=== PATIENT | male | born 1950 | race Caucasian/White ===

== ENCOUNTER 2017-04-14 23:01 | Emergency (ER) | payer MEDICARE ==
--- NOTE | 2017-04-14 23:31 | ER Document Report ---
ED General - General Chief Complaint: Foot Pain Stated Complaint: RIGHT FOOT PAIN Time Seen by Provider: 04/14/17 23:07 Notes: Patient is a 66-year-old male who presents with complaint of pain in his right foot. Patient has a history of multiple stents being placed in the arteries of his right leg due to recurrent clotting. He says the pain in his foot is exactly what he fell 3 years ago when he had to have any stents placed. He says the pain started suddenly approximately 2 hours ago where he was just lying in bed. Says he has pain at rest but is a little bit worse when he tries to apply pressure to the foot. Patient is to be on Plavix and warfarin. Patient was taken off Plavix and warfarin approximately 2 weeks ago because of some GI bleeding with his INR being supratherapeutic due to him being a chemotherapy. He is on chemotherapy due to lung cancer. Patient denies any injuries to his foot. He has no other complaints at this time. TRAVEL OUTSIDE OF THE [place] IN LAST 30 DAYS: No - Related Data Allergies/Adverse Reactions: No Known Allergies Allergy (Unverified 04/15/17 00:51) Past Medical History - Social History Smoking Status: Never Smoker Frequency of alcohol use: None Drug Abuse: None Family History: Reviewed & Not Pertinent Renal/ Medical History: Denies: Hx Peritoneal Dialysis Past Surgical History: Reports: Hx Vascular Surgery Review of Systems - Review of Systems Notes: My Normal Review Basic REVIEW OF SYSTEMS: CONSTITUTIONAL : Denies fever, chills, or sweats. Denies recent illness. RESPIRATORY: Denies cough, cold, or chest congestion. Denies shortness of breath, difficulty breathing, or wheezing. GASTROINTESTINAL: Denies abdominal pain. Denies nausea, vomiting, or diarrhea. MUSCULOSKELETAL: Denies neck or back pain or joint pain or swelling. SKIN: Denies rash or skin lesions. HEMATOLOGIC : History of recurrent arterial clotting and right leg. NEUROLOGICAL: Denies altered mental status or loss of consciousness. Denies headache. Denies weakness or paralysis or loss of use of either side. Denies problems with gait or speech. Denies sensory or motor loss. ALL OTHER SYSTEMS REVIEWED AND NEGATIVE. Physical Exam - Vital signs Vitals: Pulse Resp BP Pulse Ox 84 20 141/74 H 94 04/14/17 23:09 04/14/17 23:09 04/14/17 23:09 04/14/17 23:09 - Notes Notes: General Appearance: Well nourished, alert, cooperative, no acute distress, mild to moderate obvious discomfort. Vitals: reviewed, See vital signs table. Head: no swelling or tenderness to the head Eyes: PERRL, EOMI, Conjuctiva clear Mouth: No decreasd moisturehroat: No tonsillar inflammation, No airway obstruction, No lymphadenopathy Lungs: No wheezing, No rales, No rhonci, No accessory muscle use, good air exchange bilaterally. Heart: Normal rate, Regular rythm, No murmur, no rub Extremities: strength 5/5 in all extremities, good pulses in all extremities, dopplerable pedal pulses left foot. Right foot pedal pulses are not dopplerable. I did do bedside ultrasound significant for an color flow through the artery. I cannot see color flow either with either the posterior to tibial or the dorsalis pedis pulses. Patient does have some capillary refill but is very sluggish. Patient has pain mainly over the medial aspect of the right foot. Skin: warm, dry, no rash Neuro: speech clear, oriented x 3, normal affect, responds appropriately to questions. Course - Re-evaluation Re-evalutation: 04/14/17 23:41 Spoke with our charge nurse and we do not have the ability to do vascular Doppler night at this facility. I cannot rule out arterial occlusion of the patient's right leg at this time therefore need to transfer him to a facility that can. I have called [facility] spoke with the transfer center and waiting to hear back with an accepting physician so I can potentially transfer. Patient's weight is not yet in the system. I put in an order to obtain weight so I can place the patient on blood thinning medications. 04/14/17 23:[address] Toby Malone, vascular surgeon at [facility]. He recommends placing patient on heparin drip and except the patient for transfer. [facility] says they have a truck that can be urine in our I will transfer the patient down there. I explained the plan to the patient he is agreeable to it. Dictation of this chart was performed using voice recognition software; therefore, there may be some unintended grammatical errors. 04/15/17 02:02 Transport team is here to transfer the patient to [facility]. Patient looks well. He has no further complaints. He says he feels well other than his continued right foot pain. On reevaluation patient continues not have palpable pulses in the foot. His foot continues to be pale with sluggish capillary refill in the toes. Patient is stable for transfer. Heparin drip is infusing. - Vital Signs Vital signs: Temp Pulse Resp BP Pulse Ox 98.7 F 84 22 H 105/62 93 04/15/17 01:21 04/14/17 23:09 04/15/17 01:09 04/15/17 01:01 04/15/17 01:09 - Laboratory Result Diagrams: 04/14/17 23:35 04/14/17 23:35 Laboratory results interpreted by me: 04/14/17 04/14/17 04/15/17 23:35 23:35 00:15 WBC 2.2 L RBC 3.66 L Hgb 9.4 L Hct 28.5 L MCV 78 L D MCH 25.6 L RDW 22.8 H Monocytes % (Manual) 21 H Abs Neuts (Manual) 1.0 L BUN 6 L Glucose 128 H Urine Protein 30 H Urine Urobilinogen 2.0 H - EKG Interpretation by Me Additional EKG results interpreted by me: 04/14/17 23:58 EKG is reviewed and interpreted by me. EKG shows normal sinus rhythm with rate of 88 bpm. Occasional PVC. LA interval, QRS duration, QTc intervals are within normal range. No old EKG available for comparison. No ST segment elevation or depression. Discharge - Discharge Clinical Impression: Arterial occlusion, lower extremity Condition: Stable Disposition: [facility] Referrals: MAYRA STEWART MD [Primary Care Provider] - Follow up as needed
[2017-04-14 23:51] LABS: PARTIAL THROMBOPLASTIN TIME 35.5 SEC (23.5-35.8)
[2017-04-14] MEDS ORDERED: HEPARIN SODIUM,PORCINE/D5W 25,000 UNIT/250 ML RTUINJ IV PRN (23:51)
[2017-04-14] MEDS ORDERED: HEPARIN SOD (PORCINE) 1,000 UNIT/ML 10 ML VIAL IV ONE (23:51)
[2017-04-14 23:58] LABS: HEMATOCRIT 28.5 % (37.9-51.0); HEMOGLOBIN 9.4 g/dL (13.5-17.0); HGB HCT DIFFERENCE -0.3; MEAN CORPUSCULAR HEMOGLOBIN 25.6 pg (27.0-33.4); MEAN CORPUSCULAR HGB CONC 32.8 g/dL (32.0-36.0); RED BLOOD COUNT 3.66 10^6/uL (4.35-5.55); RED CELL DISTRIBUTION WIDTH 22.8 % (11.5-14.0); WHITE BLOOD COUNT 2.2 10^3/uL (4.0-10.5)
[2017-04-15 00:01] LABS: ANION GAP 9 (5-19); BLOOD UREA NITROGEN 6 mg/dL (7-20); CALCIUM 8.6 mg/dL (8.4-10.2); CARBON DIOXIDE 26 mmol/L (22-30); CHLORIDE 104 mmol/L (98-107); CREATININE RESULT 0.71 mg/dL (0.52-1.25); GLUCOSE 128 mg/dL (75-110); POTASSIUM 3.9 mmol/L (3.6-5.0); SODIUM 139.1 mmol/L (137-145)
[2017-04-15 00:10] LABS: MEAN CORPUSCULAR VOLUME 78 fl (80-97)
[2017-04-15 00:17] LABS: BASOPHILS % (MANUAL) 1 % (0-2); EOSINOPHILS % (MANUAL) 1 % (0-6); LYMPHOCYTES % (MANUAL) 31 % (13-45); TOTAL CELLS COUNTED 100
[2017-04-15 00:22] LABS: ANISOCYTOSIS 3+; HYPOCHROMASIA 1+; MICROCYTOSIS SLIGHT; POIKILOCYTOSIS 1+; POLYCHROMASIA 1+
[2017-04-15 00:23] LABS: BURR CELLS 1+; OVALOCYTES 1+; PLATELET CLUMPS PRESENT; SCHISTOCYTES 1+
[2017-04-15 00:57] LABS: APPEARANCE,URINE CLEAR; BILIRUBIN,URINE NEGATIVE (NEGATIVE); GLUCOSE, URINE NEGATIVE (NEGATIVE); KETONES,URINE NEGATIVE (NEGATIVE); LEUKOCYTE ESTERASE,URINE NEGATIVE (NEGATIVE); NITRITE,URINE NEGATIVE (NEGATIVE); PROTEIN,URINE 30 mg/dL (NEGATIVE); URINE SPECIFIC GRAVITY 1.011
[2017-04-15 02:03] VITALS: BP 127/68
--- NOTE | 2017-04-15 07:59 | EKG REPORT ---
SEVERITY:- ABNORMAL ECG - SINUS RHYTHM VENTRICULAR BIGEMINY : Confirmed by: Kareem Navas MD 15-Apr-2017 07:59:04
== END 2017-04-15 02:10 | disposition short-term general hospital (02) ==
LOC: ER 23:01
DX: I70.209 Unspecified atherosclerosis of native arteries of extremities, unspecified extremity (principal); M79.671 Pain in right foot; Z95.820 Peripheral vascular angioplasty status with implants and grafts; C34.90 Malignant neoplasm of unspecified part of unspecified bronchus or lung; Z79.899 Other long term (current) drug therapy
CPT/HCPCS: 93005; 96376; 99285; 96365; 96366; 36415; 85025; 85610; 85730; 80048; 81001; 93010; J1644 ×2

== ENCOUNTER 2017-06-10 09:01 | Inpatient (IN) | payer MEDICARE ==
[2017-06-10] MEDS ORDERED: IPRATROPIUM/ALBUTEROL 0.5-2.5 MG/3 ML AMPUL NEB ONE ×3 (09:08→15:00)
[2017-06-10] MEDS ORDERED: NORMAL SALINE 1000 ML 1,000 ML IV ONE (09:08)
--- NOTE | 2017-06-10 09:37 | RADIOLOGY REPORT (SQ) ---
EXAM DESCRIPTION: CHEST SINGLE VIEW COMPLETED DATE/TIME: 06/10/2017 9:21 am REASON FOR STUDY: hypoxic COMPARISON: None. EXAM PARAMETERS: NUMBER OF VIEWS: One view. TECHNIQUE: Single frontal radiographic view of the chest acquired. RADIATION DOSE: NA LIMITATIONS: None. FINDINGS: LUNGS AND PLEURA: There is underlying emphysema. There is patchy multifocal airspace dise ase with moderate bilateral pleural effusions, left greater than right. MEDIASTINUM AND HILAR STRUCTURES: No masses. Contour normal. HEART: Cardiomegaly. BONES: No acute findings. HARDWARE: None in the chest. OTHER: No other significant finding. IMPRESSION: UNDERLYING EMPHYSEMA WITH PATCHY MULTIFOCAL AIRSPACE DISEASE AND MODERATE BILATERAL PLEU RAL EFFUSIONS. PRESUMABLY THIS REPRESENTS ASYMMETRIC PULMONARY EDEMA SUPERIMPOSED ON COPD HOWEVER MU LTIFOCAL PNEUMONIA IS ALSO IN THE DIFFERENTIAL. TECHNICAL DOCUMENTATION: JOB ID: [id number] [employer]- All Rights Reserved
[2017-06-10 09:44] LABS: ABSOLUTE BASOPHILS # (AUTO) 0.1 10^3/uL (0.0-0.2); ABSOLUTE LYMPHOCYTES (AUTO) 2.1 10^3/uL (0.5-4.7); ABSOLUTE NEUT (AUTO) 7.9 10^3/uL (1.7-8.2); EOSINOPHILS % (AUTO) 0.4 % (0-6); HEMATOCRIT 33.7 % (37.9-51.0); HEMOGLOBIN 9.7 g/dL (13.5-17.0); LYMPHOCYTES % (AUTO) 18.6 % (13-45); MEAN CORPUSCULAR HGB CONC 28.8 g/dL (32.0-36.0); MEAN CORPUSCULAR VOLUME 66 fl (80-97); MONOCYTES % (AUTO) 9.4 % (3-13); PLATELET COUNT 454 10^3/uL (150-450); RED CELL DISTRIBUTION WIDTH 19.4 % (11.5-14.0); SEGMENTED NEUTROPHILS % (AUTO) 70.6 % (42-78); TOTAL CELLS COUNTED % (AUTO) 100 %; WHITE BLOOD COUNT 11.2 10^3/uL (4.0-10.5)
[2017-06-10 09:47] LABS: INTERNATIONAL RATION (INR) 3.15; PROTHROMBIN TIME 33.8 SEC (11.4-15.4)
[2017-06-10 09:56] LABS: VENOUS BLOOD BASE EXCESS -0.8 mmol/L; VENOUS BLOOD HCO3 23.9 mmol/L (20-32); VENOUS BLOOD PCO2 39.5 mmHg (35-63); VENOUS BLOOD PH 7.4 (7.30-7.42)
[2017-06-10 10:14] LABS: ALANINE AMINOTRANSFERASE 35 U/L (21-72); ALBUMIN 2.3 g/dL (3.5-5.0); ALKALINE PHOSPHATASE 166 U/L (38-126); ANION GAP 7 (5-19); ASPARTATE AMINO TRANSFERASE 36 U/L (17-59); BILIRUBIN,DIRECT 0.3 mg/dL (0.0-0.4); BILIRUBIN,TOTAL 0.5 mg/dL (0.2-1.3); BLOOD UREA NITROGEN 15 mg/dL (7-20); CALCIUM 8.7 mg/dL (8.4-10.2); CARBON DIOXIDE 25 mmol/L (22-30); CHLORIDE 109 mmol/L (98-107); GLUCOSE 114 mg/dL (75-110); POTASSIUM 3.8 mmol/L (3.6-5.0); SODIUM 140.5 mmol/L (137-145); TOTAL PROTEIN 5.1 g/dL (6.3-8.2)
[2017-06-10] MEDS ORDERED: VANCOMYCIN HCL INJ 1000 MG VIAL IV ONE (10:32)
[2017-06-10] MEDS ORDERED: LEVOFLOXACIN 750 MG TABLET PO ONE (10:32)
[2017-06-10] MEDS ORDERED: PIPERACILLIN/TAZOBACTAM 3.375 GM VIAL IV ONE (10:32)
--- NOTE | 2017-06-10 10:41 | ER Document Report ---
ED General - General Chief Complaint: Breathing Difficulty Stated Complaint: DIFFICULTY BREATHING Time Seen by Provider: 06/10/17 09:08 Mode of Arrival: Medic Information source: Patient Notes: 66-year-old male history of stage IV lung CA who last had chemotherapy and April presents with complaints of shortness of breath, patient was found satting 74% on room air by EMS. He notes his shortness of breath has been worsening over the past few days. He denies being on any oxygen at home. He denies any fevers or chills admits to productivity to his cough patient was last in rehab facility in the end of April. Patient was supposed to have chemo yesterday but had to cancel due to increment weather in [place] TRAVEL OUTSIDE OF THE [place] IN LAST 30 DAYS: No - HPI Onset: Last week Onset/Duration: Persistent, Worse Quality of pain: No pain Severity: Severe Pain Level: Denies Associated symptoms: Productive cough, Shortness of breath Exacerbated by: Denies Relieved by: Denies Similar symptoms previously: Yes Recently seen / treated by doctor: Yes - Related Data Allergies/Adverse Reactions: No Known Allergies Allergy (Unverified 04/15/17 00:51) Past Medical History - Social History Smoking Status: Current Every Day Smoker Cigarette use (# per day): Yes Chew tobacco use (# tins/day): No Smoking Education Provided: Yes - Patient counselled regarding cessation for 4 minutes Frequency of alcohol use: None Drug Abuse: None Family History: Reviewed & Not Pertinent Patient has suicidal ideation: No Patient has homicidal ideation: No - Past Medical History Cardiac Medical History: Reports: Hx Atrial Fibrillation Renal/ Medical History: Denies: Hx Peritoneal Dialysis Past Surgical History: Reports: Hx Vascular Surgery Review of Systems - Review of Systems Notes: REVIEW OF SYSTEMS: CONSTITUTIONAL : Denies fever, chills, or sweats. Denies recent illness. EENT: Denies eye, ear, throat, or mouth pain or symptoms. Denies nasal or sinus congestion or discharge. Denies throat, tongue, or mouth swelling or difficulty swallowing. CARDIOVASCULAR: Denies chest pain. Denies palpitations or racing or irregular heart beat. Denies ankle edema. RESPIRATORY: difficulty breathing GASTROINTESTINAL: Denies abdominal pain or distention. Denies nausea, vomiting , or diarrhea. Denies blood in vomitus, stools, or per rectum. Denies black, tarry stools. Denies constipation. GENITOURINARY: Denies difficulty urinating, painful urination, burning, frequency, blood in urine, or discharge. MUSCULOSKELETAL: Denies back or neck pain or stiffness. Denies joint pain or swelling. SKIN: Denies rash, lesions or sores. HEMATOLOGIC : Denies easy bruising or bleeding. LYMPHATIC: Denies swollen, enlarged glands. NEUROLOGICAL: Denies confusion or altered mental status. Denies passing out or loss of consciousness. Denies dizziness or lightheadedness. Denies headache. Denies weakness or paralysis or loss of use of either side. Denies problems with gait or speech. Denies sensory loss, numbness, or tingling. Denies seizures. PSYCHIATRIC: Denies anxiety or stress. Denies depression, suicidal ideation, or homicidal ideation. ALL OTHER SYSTEMS REVIEWED AND NEGATIVE. Dictation was performed using [employer] voice recognition software PHYSICAL EXAMINATION: GENERAL: Ill-appearing, poorly-nourished and in significant respiratory distress HEAD: Atraumatic, normocephalic. EYES: Pupils equal round and reactive to light, extraocular movements intact, sclera anicteric, conjunctiva are normal. ENT: Nares patent, oropharynx clear without exudates. Moist mucous membranes. NECK: Normal range of motion, supple without lymphadenopathy LUNGS: Coarse wheezing inspiratory expiratory significant respiratory distress retractions noted all throughout HEART: Regular rate and rhythm without murmurs ABDOMEN: Soft, nontender, nondistended abdomen. No guarding, no rebound. No masses appreciated. Musculoskeletal: Normal range of motion, no pitting or edema. No cyanosis. NEUROLOGICAL: Cranial nerves grossly intact. Normal speech, normal gait. Normal sensory, motor exams PSYCH: Normal mood, normal affect. SKIN: Warm, Dry, normal turgor, no rashes or lesions noted. Physical Exam - Vital signs Vitals: Temp BP 98.4 F 189/100 H 06/10/17 09:05 06/10/17 09:05 Course - Re-evaluation Re-evalutation: 06/10/17 10:45 Patient's x-ray is consistent with effusions there is concern for patchy infiltrates of pneumonia which would be hospital-acquired patient will be treated for such he is currently on BiPAP 06/11/17 07:35 Patient will be admitted to the hospitalist service - Vital Signs Vital signs: Temp Pulse Resp BP Pulse Ox 97.7 F 93 23 H 142/72 H 99 06/11/17 04:32 06/11/17 04:32 06/11/17 04:32 06/11/17 04:32 06/11/17 04:32 - Laboratory Result Diagrams: 06/11/17 05:59 06/11/17 05:59 Laboratory results interpreted by me: 06/10/17 06/10/17 06/10/17 09:11 09:11 09:11 WBC 11.2 H Hgb 9.7 L Hct 33.7 L MCV 66 L MCH 19.0 L MCHC 28.8 L RDW 19.4 H Plt Count 454 H PT 33.8 H Chloride 109 H Glucose 114 H Alkaline Phosphatase 166 H Total Protein 5.1 L Albumin 2.3 L - Diagnostic Test Radiology reviewed: Image reviewed, Reports reviewed Critical Care Note - Critical Care Note Total time excluding time spent on procedures (mins): 45 Comments: 45 minutes of critical care time spent in direct contact evaluating and reevaluating the patient, treating symptoms, reviewing labs and studies and speaking with family and consultants excluding any procedures Discharge - Discharge Clinical Impression: Hospital-acquired pneumonia Squamous cell carcinoma of lung, stage IV Qualifiers: Laterality: unspecified laterality Qualified Code(s): C34.90 - Malignant neoplasm of unspecified part of unspecified bronchus or lung Respiratory failure Qualifiers: Chronicity: acute Respiratory failure complication: unspecified whether with hypoxia or hypercapnia Qualified Code(s): J96.00 - Acute respiratory failure, unspecified whether with hypoxia or hypercapnia Condition: Fair Disposition: ADMITTED INPATIENT Admitting Provider: Hospitalist Unit Admitted: IMCU
--- NOTE | 2017-06-10 17:28 | EKG REPORT ---
SEVERITY:- BORDERLINE ECG - SINUS TACHYCARDIA BORDERLINE T ABNORMALITIES, ANTERIOR LEADS : Confirmed by: Ritesh Neville 10-Jun-2017 12:18:06
[2017-06-10] MEDS ORDERED: RIVAROXABAN 10 MG TABLET ONE (19:11)
[2017-06-10] MEDS ORDERED: METHYLPREDNISOLONE INJ 40 MG/1 ML SDV ONE (22:53)
[2017-06-10] MEDS ORDERED: ALBUTEROL SULFATE 0.083% NEB 2.5 MG/3 ML AMPUL NEB PRN (23:09)
[2017-06-11] MEDS: IPRATROPIUM/ALBUTEROL 0.5-2.5 MG/3 ML AMPUL NEB SCH ×4 (01:57→21:20)
[2017-06-11 06:27] LABS: HEMATOCRIT 27.8 % (37.9-51.0); HEMOGLOBIN 8.2 g/dL (13.5-17.0); MEAN CORPUSCULAR HEMOGLOBIN 19.4 pg (27.0-33.4); MEAN CORPUSCULAR HGB CONC 29.3 g/dL (32.0-36.0); MEAN CORPUSCULAR VOLUME 66 fl (80-97); PLATELET COUNT 338 10^3/uL (150-450); RED CELL DISTRIBUTION WIDTH 19.4 % (11.5-14.0); WHITE BLOOD COUNT 7.6 10^3/uL (4.0-10.5)
[2017-06-11] MEDS: METHYLPREDNISOLONE INJ 40 MG/1 ML SDV IV SCH ×3 (06:31→21:07)
[2017-06-11 06:58] LABS: ANION GAP 6 (5-19); BLOOD UREA NITROGEN 18 mg/dL (7-20); CALCIUM 8.6 mg/dL (8.4-10.2); CARBON DIOXIDE 25 mmol/L (22-30); CHLORIDE 109 mmol/L (98-107); GLUCOSE 141 mg/dL (75-110); POTASSIUM 4.3 mmol/L (3.6-5.0); SODIUM 139.5 mmol/L (137-145)
[2017-06-11] MEDS: LEVOFLOXACIN 750 MG/D5W RTU 750 MG/150 ML RTUPB IV SCH (08:25)
--- NOTE | 2017-06-11 10:42 | HISTORY AND PHYSICAL E ---
History and Physical NAME: SYLWIA WATSON : 1950 AGE: 66Y ADMITTED: 06/10/2017 ROOM: 330 ADMITTING PHYSICIAN: [facility]. ADMISSION DIAGNOSES: 1. Pneumonia. 2. Acute COPD exacerbation. 3. Lung cancer, last chemotherapy in March. 4. Atrial fibrillation. HISTORY OF PRESENT ILLNESS: The patient is a 66-year-old male who has a history of lung cancer. He last received chemotherapy in March in [place]. The patient reports that he awoke this morning with cough productive of thick yellow sputum as well as expiratory wheezes. The patient reported he was short of breath with minimal exertion and was found to have an oxygen saturation of 75% when he presented to the emergency room. The patient denied having any chest pain. He denies orthopnea or PND. He does have some chronic lower extremity edema but no change there. He denies any recent travel. He denies any sick exposures. The patient was not aware of whether he was running any fever. The patient was seen in the emergency room and was found to have a pneumonia along with COPD exacerbation. PAST MEDICAL HISTORY: 1. Lung cancer. History of chemotherapy last given in March. 2. Atrial fibrillation. 3. Coronary artery disease with history of coronary stent placement in the right coronary artery. 4. Peripheral vascular. The patient has had multiple peripheral stents placed at the right leg and bilateral iliacs by his description. ALLERGIES: None. MEDICATIONS: 1. Xarelto 20 mg daily. 2. Folic acid 1 mg daily. The patient is on other medications but cannot remember what those are at this time. SURGICAL HISTORY: The patient has a history of peripheral stents as well coronary artery stents. No other surgeries. SOCIAL HISTORY: The patient smokes 1/2 pack per day. He does not drink any alcohol and does not use any illicit substances. The patient used to be employed as a [employer] security. FAMILY HISTORY: Father at age 73 and had no chronic health problems. Mother at age 68 and had no chronic health problems. He had a brother who from coronary artery disease. REVIEW OF SYSTEMS: A complete review of systems is taken. The patient denies any fever or chills. He denies any visual or hearing changes. He denies any odynophagia or dysphagia. He denies any neck pain or stiffness. He has had a cough productive of some yellow thick sputum. He also has had shortness of breath and wheezing. He denies any orthopnea or PND or worsening lower extremity edema. He denies any chest pain. He denies any palpitations. He does have a history of atrial fibrillation but reports it has been rate controlled. He denies any nausea, vomiting or abdominal pain. He denies any melena or bright red blood per rectum. He denies any melena or bright red blood per rectum. He does have some urinary hesitancy but denies any hematuria. He has had some chronic lower extremity edema but no change in that edema. He denies any skin rash. He denies any focal weakness. He denies any sensory changes. RADIOGRAPHS: Chest x-ray shows left lower lobe pneumonia. ASSESSMENT AND PLAN: 1. Pneumonia. The patient appears to have community-acquired pneumonia. The last time he was in a healthcare facility was the first part of April and I feel he is not at risk for healthcare associated pneumonia. Will treat with Levaquin 750 mg IV daily. Blood cultures were obtained by the emergency room. 2. Acute COPD exacerbation. Will continue with nebulizers and Solu-Medrol. 3. Coronary artery disease. The patient has a history of coronary artery disease but denies any chest pain. 4. Atrial fibrillation. The patient is currently rate controlled. We will continue with the Xarelto 20 mg daily as he has done previously. 5. Peripheral vascular disease. The patient has a history of stents placed in his bilateral iliacs as well as further peripherally in the right leg. 6. Tobacco abuse. The patient is counseled to quit smoking. 7. Code status. The patient requests to be a DO NOT RESUSCITATE. DISPOSITION: The patient will be admitted to the IMCU unit. He also will be given BiPAP as needed. TIME SPENT: Seventy-five minutes. DICTATING PHYSICIAN: Dustin NICHOLS M.D. [id number] PHY#: [id number] ID: [id number] JOB#: [id number] ACCT: [id number] cc:Dat Mccall M.D. >
--- NOTE | 2017-06-11 11:36 | PDOC PROGRESS REPORT ---
Subjective Progress Note for:: 06/11/17 Subjective:: Patient reports that he is feeling better with less cough Reason For Visit: RESPIRATORY FAILURE Physical Exam Vital Signs: Temp Pulse Resp BP Pulse Ox 98.0 F 91 18 128/70 H 95 06/11/17 07:41 06/11/17 07:41 06/11/17 07:41 06/11/17 07:41 06/11/17 07:41 Intake & Output 06/10/17 06/11/17 06/12/17 06:59 06:59 06:59 Intake Total 460 Balance 460 Weight 69.7 kg General appearance: PRESENT: no acute distress Eye exam: PRESENT: conjunctiva pink. ABSENT: scleral icterus Mouth exam: PRESENT: moist, tongue midline Neck exam: ABSENT: JVD Respiratory exam: PRESENT: wheezes - Bilateral expiratory wheezes. ABSENT: rales, rhonchi Cardiovascular exam: PRESENT: RRR. ABSENT: diastolic murmur, rubs, systolic murmur GI/Abdominal exam: PRESENT: normal bowel sounds, soft. ABSENT: distended, guarding, mass, organolmegaly, rebound, tenderness Extremities exam: ABSENT: calf tenderness, clubbing Neurological exam: PRESENT: alert, awake, oriented to person, oriented to place , oriented to time, oriented to situation, CN II-XII grossly intact. ABSENT: motor sensory deficit Psychiatric exam: PRESENT: appropriate affect Skin exam: PRESENT: dry, intact, warm. ABSENT: cyanosis, rash Results Laboratory Results: 06/11/17 05:59 06/11/17 05:59 06/11/17 06/11/17 05:59 05:59 WBC 7.6 RBC 4.20 L Hgb 8.2 L Hct 27.8 L MCV 66 L MCH 19.4 L MCHC 29.3 L RDW 19.4 H Plt Count 338 Sodium 139.5 Potassium 4.3 Chloride 109 H Carbon Dioxide 25 Anion Gap 6 BUN 18 Creatinine 0.76 Est GFR ( Amer) > 60 Est GFR (Non-Af Amer) > 60 Glucose 141 H Calcium 8.6 Impressions: Chest X-Ray 06/10/17 09:08 IMPRESSION: UNDERLYING EMPHYSEMA WITH PATCHY MULTIFOCAL AIRSPACE DISEASE AND MODERATE BILATERAL PLEURAL EFFUSIONS. PRESUMABLY THIS REPRESENTS ASYMMETRIC PULMONARY EDEMA SUPERIMPOSED ON COPD HOWEVER MULTIFOCAL PNEUMONIA IS ALSO IN THE DIFFERENTIAL. Assessment & Plan - Diagnosis (1) Respiratory failure Qualifiers: Chronicity: acute Respiratory failure complication: unspecified whether with hypoxia or hypercapnia Qualified Code(s): J96.00 - Acute respiratory failure, unspecified whether with hypoxia or hypercapnia Is this a current diagnosis for this admission?: Yes Plan: Secondary to pneumonia and acute COPD exacerbation. Patient was on BiPAP yesterday but is doing well without it at this time. (2) Pneumonia Is this a current diagnosis for this admission?: Yes Plan: It has been over 6 weeks since the patient was in a hospital facility. Because of this I feel this is community-acquired pneumonia and not hospital acquired pneumonia. Because of that we will continue with the Levaquin. (3) COPD exacerbation Is this a current diagnosis for this admission?: Yes Plan: We will continue with the Solu-Medrol and nebulizers. (4) Atrial fibrillation Is this a current diagnosis for this admission?: Yes Plan: Patient is rate control. Continue with the Xarelto for anticoagulation. (5) Coronary artery disease Is this a current diagnosis for this admission?: Yes Plan: Denies any chest pain. (6) Peripheral vascular disease Is this a current diagnosis for this admission?: Yes Plan: Patient has had multiple stent placements in his legs. (7) Squamous cell carcinoma of lung, stage IV Qualifiers: Laterality: unspecified laterality Qualified Code(s): C34.90 - Malignant neoplasm of unspecified part of unspecified bronchus or lung Is this a current diagnosis for this admission?: Yes Plan: Patient reports that his last chemotherapy was in April. (8) Do not resuscitate Is this a current diagnosis for this admission?: Yes Plan: Patient requests to be a DO NOT RESUSCITATE. - Time Time Spent with patient: 25-34 minutes - Inpatient Certification Medical Necessity: Need Close Monitoring Due to Risk of Patient Decompensation, Need for IV Antibiotics
[2017-06-11] MEDS ORDERED: METOPROLOL TARTRATE 25 MG TABLET PO ONE (13:15)
[2017-06-11] MEDS ORDERED: ALBUTEROL SULFATE HFA (90 MCG/PUFF) 200 PUFF/8.5 GM MDI IH PRN (13:15)
[2017-06-11 17:12] LABS: APPEARANCE,URINE SLIGHTLY-CLOUDY; BILIRUBIN,URINE NEGATIVE (NEGATIVE); COLOR,URINE YELLOW; GLUCOSE, URINE 50 mg/dL (NEGATIVE); KETONES,URINE NEGATIVE (NEGATIVE); LEUKOCYTE ESTERASE,URINE NEGATIVE (NEGATIVE); NITRITE,URINE NEGATIVE (NEGATIVE); PROTEIN,URINE 30 mg/dL (NEGATIVE); URINE SPECIFIC GRAVITY 1.023
[2017-06-11] MEDS: RIVAROXABAN 10 MG TABLET PO SCH (18:13)
[2017-06-11] MEDS: LANSOPRAZOLE 30 MG TAB.RAP.DR PO SCH (18:13)
[2017-06-11] MEDS: BUPROPION HCL 75 MG TABLET PO SCH (21:07)
[2017-06-11] MEDS: NORMAL SALINE 1000 ML 1,000 ML IV PRN (21:07)
[2017-06-11] MEDS ORDERED: RIVAROXABAN 10 MG TABLET PO SCH (22:00)
[2017-06-12] MEDS: IPRATROPIUM/ALBUTEROL 0.5-2.5 MG/3 ML AMPUL NEB SCH ×4 (03:06→20:24)
[2017-06-12] MEDS: METHYLPREDNISOLONE INJ 40 MG/1 ML SDV IV SCH ×3 (05:36→22:12)
[2017-06-12] MEDS: LANSOPRAZOLE 30 MG TAB.RAP.DR PO SCH ×2 (05:37→16:04)
[2017-06-12 06:18] LABS: ABSOLUTE BASOPHILS # (AUTO) 0.1 10^3/uL (0.0-0.2); ABSOLUTE LYMPHOCYTES (AUTO) 0.5 10^3/uL (0.5-4.7); ABSOLUTE MONOCYTES (AUTO) 0.3 10^3/uL (0.1-1.4); ABSOLUTE NEUT (AUTO) 9.3 10^3/uL (1.7-8.2); BASOPHILS % (AUTO) 0.6 % (0-2); BLOOD UREA NITROGEN 15 mg/dL (7-20); CALCIUM 8.7 mg/dL (8.4-10.2); CHLORIDE 109 mmol/L (98-107); GLUCOSE 126 mg/dL (75-110); HEMATOCRIT 26.4 % (37.9-51.0); LYMPHOCYTES % (AUTO) 5.3 % (13-45); MEAN CORPUSCULAR HEMOGLOBIN 19.2 pg (27.0-33.4); MEAN CORPUSCULAR HGB CONC 29.4 g/dL (32.0-36.0); MEAN CORPUSCULAR VOLUME 65 fl (80-97); MONOCYTES % (AUTO) 3.2 % (3-13); PLATELET COUNT 356 10^3/uL (150-450); RED BLOOD COUNT 4.04 10^6/uL (4.35-5.55); RED CELL DISTRIBUTION WIDTH 19.2 % (11.5-14.0); SEGMENTED NEUTROPHILS % (AUTO) 90.9 % (42-78); TOTAL CELLS COUNTED % (AUTO) 100 %; WHITE BLOOD COUNT 10.2 10^3/uL (4.0-10.5)
[2017-06-12 06:30] LABS: ANION GAP 6 (5-19); CARBON DIOXIDE 24 mmol/L (22-30); SODIUM 138.8 mmol/L (137-145)
[2017-06-12 06:44] LABS: HEMOGLOBIN 7.8 g/dL (13.5-17.0)
[2017-06-12] MEDS: LEVOFLOXACIN 750 MG/D5W RTU 750 MG/150 ML RTUPB IV SCH (07:50)
[2017-06-12] MEDS: BUPROPION HCL 75 MG TABLET PO SCH ×2 (09:26→22:12)
[2017-06-12] MEDS: AMIODARONE HCL 200 MG TABLET PO SCH (09:26)
[2017-06-12] MEDS: FOLIC ACID 1 MG TABLET PO SCH (09:26)
[2017-06-12] MEDS: METOPROLOL TARTRATE 25 MG TABLET PO SCH (09:27)
[2017-06-12] MEDS ORDERED: METOPROLOL TARTRATE 25 MG TABLET PO SCH (10:00)
[2017-06-12] MEDS ORDERED: (PENDING PHARMACY ID) (Bupropion Hcl [Bupropion Xl] 150 MG) PO SCH (10:00)
[2017-06-12] MEDS: RIVAROXABAN 10 MG TABLET PO SCH (16:04)
--- NOTE | 2017-06-12 17:40 | PDOC PROGRESS REPORT ---
Subjective Progress Note for:: 06/12/17 Subjective:: No overnight events. Continues to cough and have some SOB. On 2L. No other complaints. Denies fevers, chills, CP, SOB, abdominal pain, NV. Reason For Visit: PNEUMONIA Physical Exam Vital Signs: Temp Pulse Resp BP Pulse Ox 98.0 F 81 23 H 125/62 92 06/12/17 15:19 06/12/17 15:45 06/12/17 15:19 06/12/17 15:19 06/12/17 15:45 Intake & Output 06/11/17 06/12/17 06/13/17 06:59 06:59 06:59 Intake Total 460 2594 1040 Output Total 300 1 Balance 460 2294 1039 Weight 69.7 kg 70.6 kg General appearance: PRESENT: no acute distress, cooperative, other - Thin, cachectic, older than staged age Head exam: PRESENT: atraumatic, normocephalic Mouth exam: PRESENT: moist Respiratory exam: PRESENT: decreased breath sounds, unlabored, other - Course breath sounds throughout Cardiovascular exam: PRESENT: RRR GI/Abdominal exam: PRESENT: soft. ABSENT: firm, rigid Neurological exam: PRESENT: alert, altered, awake Results Laboratory Results: 06/12/17 05:23 06/12/17 05:23 06/12/17 06/12/17 05:23 05:23 WBC 10.2 RBC 4.04 L Hgb 7.8 L Hct 26.4 L MCV 65 L MCH 19.2 L MCHC 29.4 L RDW 19.2 H Plt Count 356 Seg Neutrophils % 90.9 H Lymphocytes % 5.3 L Monocytes % 3.2 Eosinophils % 0.0 Basophils % 0.6 Absolute Neutrophils 9.3 H Absolute Lymphocytes 0.5 Absolute Monocytes 0.3 Absolute Eosinophils 0.0 Absolute Basophils 0.1 Sodium 138.8 Potassium 4.0 Chloride 109 H Carbon Dioxide 24 Anion Gap 6 BUN 15 Creatinine 0.68 Est GFR ( Amer) > 60 Est GFR (Non-Af Amer) > 60 Glucose 126 H Calcium 8.7 06/11/17: NO growth at 1 day, blood cultures 06/10/17 13:07 Sputum Gram Stain - Final 06/10/17 13:07 Sputum Sputum Culture - Final NORMAL IRA Impressions: Chest X-Ray 06/10/17 09:08 IMPRESSION: UNDERLYING EMPHYSEMA WITH PATCHY MULTIFOCAL AIRSPACE DISEASE AND MODERATE BILATERAL PLEURAL EFFUSIONS. PRESUMABLY THIS REPRESENTS ASYMMETRIC PULMONARY EDEMA SUPERIMPOSED ON COPD HOWEVER MULTIFOCAL PNEUMONIA IS ALSO IN THE DIFFERENTIAL. Assessment & Plan - Diagnosis (1) Pneumonia Qualifiers: Pneumonia type: due to unspecified organism Is this a current diagnosis for this admission?: Yes Plan: Breathing improved, currently on 2L - Continue Levoquin for now - Extremely deconditioned, PT consulted (2) COPD exacerbation Is this a current diagnosis for this admission?: Yes Plan: Long standing COPD, contributes to underlying breathing issues (3) Coronary artery disease Is this a current diagnosis for this admission?: Yes Plan: Stable, continue current medications (4) Do not resuscitate Is this a current diagnosis for this admission?: Yes (5) Squamous cell carcinoma of lung, stage IV Qualifiers: Laterality: unspecified laterality Qualified Code(s): C34.90 - Malignant neoplasm of unspecified part of unspecified bronchus or lung Is this a current diagnosis for this admission?: Yes Plan: Currently not actively treatment. Has outpatient medical oncology - Time Time Spent with patient: Less than 15 minutes Within: within 48 hours
[2017-06-13] MEDS: IPRATROPIUM/ALBUTEROL 0.5-2.5 MG/3 ML AMPUL NEB SCH ×4 (02:26→20:46)
[2017-06-13] MEDS: METHYLPREDNISOLONE INJ 40 MG/1 ML SDV IV SCH (06:26)
[2017-06-13] MEDS: BENZONATATE 100 MG CAPSULE PO SCH ×3 (06:26→23:06)
[2017-06-13] MEDS: LANSOPRAZOLE 30 MG TAB.RAP.DR PO SCH ×2 (06:26→16:39)
[2017-06-13 08:46] LABS: HEMOGLOBIN 8.4 g/dL (13.5-17.0); MEAN CORPUSCULAR HEMOGLOBIN 19.1 pg (27.0-33.4); MEAN CORPUSCULAR HGB CONC 29.1 g/dL (32.0-36.0); MEAN CORPUSCULAR VOLUME 66 fl (80-97); PLATELET COUNT 444 10^3/uL (150-450); RED BLOOD COUNT 4.41 10^6/uL (4.35-5.55); RED CELL DISTRIBUTION WIDTH 19.2 % (11.5-14.0); WHITE BLOOD COUNT 10.3 10^3/uL (4.0-10.5)
[2017-06-13 09:03] LABS: ANION GAP 7 (5-19); BLOOD UREA NITROGEN 14 mg/dL (7-20); CALCIUM 9.6 mg/dL (8.4-10.2); CARBON DIOXIDE 22 mmol/L (22-30); CHLORIDE 109 mmol/L (98-107); GLUCOSE 170 mg/dL (75-110); POTASSIUM 3.9 mmol/L (3.6-5.0); SODIUM 137.6 mmol/L (137-145)
[2017-06-13] MEDS: METOPROLOL TARTRATE 25 MG TABLET PO SCH (09:14)
[2017-06-13] MEDS: LEVOFLOXACIN 750 MG TABLET PO SCH (09:14)
[2017-06-13] MEDS: FOLIC ACID 1 MG TABLET PO SCH (09:14)
[2017-06-13] MEDS: PREDNISONE 20 MG TABLET PO SCH (09:14)
[2017-06-13] MEDS: BUPROPION HCL 75 MG TABLET PO SCH ×2 (09:15→23:05)
[2017-06-13] MEDS: AMIODARONE HCL 200 MG TABLET PO SCH (09:15)
[2017-06-13] MEDS: TIOTROPIUM BROMIDE DPI 5 CAP/KIT (18 MCG/CAP) IH SCH (11:25)
[2017-06-13] MEDS: NORMAL SALINE 1000 ML 1,000 ML IV PRN (12:52)
--- NOTE | 2017-06-13 15:13 | PDOC PROGRESS REPORT ---
Subjective Progress Note for:: 06/13/17 Subjective:: No overnight events. Continues to cough and have some SOB. On 2L. No other complaints. Denies fevers, chills, CP, SOB, abdominal pain, NV. Reason For Visit: PNEUMONIA Physical Exam Vital Signs: Temp Pulse Resp BP Pulse Ox 97.5 F 79 18 127/69 H 92 06/13/17 11:34 06/13/17 14:24 06/13/17 14:24 06/13/17 11:34 06/13/17 14:24 Intake & Output 06/12/17 06/13/17 06/14/17 06:59 06:59 06:59 Intake Total 2594 2418 Output Total 300 76 Balance 2294 2342 Weight 70.6 kg 72.1 kg General appearance: PRESENT: no acute distress, other - More interactive, pleasant Head exam: PRESENT: atraumatic, normocephalic Mouth exam: PRESENT: moist Respiratory exam: PRESENT: other - Course breath sounds, no wheezing, improved respiratory exam compared to 06/12 Cardiovascular exam: PRESENT: RRR. ABSENT: systolic murmur GI/Abdominal exam: PRESENT: soft. ABSENT: tenderness Neurological exam: PRESENT: alert, awake, CN II-XII grossly intact Results Laboratory Results: 06/13/17 08:30 06/13/17 08:30 06/13/17 06/13/17 08:30 08:30 WBC 10.3 RBC 4.41 Hgb 8.4 L Hct 29.0 L MCV 66 L MCH 19.1 L MCHC 29.1 L RDW 19.2 H Plt Count 444 Sodium 137.6 Potassium 3.9 Chloride 109 H Carbon Dioxide 22 Anion Gap 7 BUN 14 Creatinine 0.64 Est GFR ( Amer) > 60 Est GFR (Non-Af Amer) > 60 Glucose 170 H Calcium 9.6 06/11/17 16:45 Clean Catch Midstream Urine Culture - Final NO GROWTH 2 DAYS 06/10/17 13:07 Sputum Gram Stain - Final 06/10/17 13:07 Sputum Sputum Culture - Final NORMAL IRA Impressions: Chest X-Ray 06/10/17 09:08 IMPRESSION: UNDERLYING EMPHYSEMA WITH PATCHY MULTIFOCAL AIRSPACE DISEASE AND MODERATE BILATERAL PLEURAL EFFUSIONS. PRESUMABLY THIS REPRESENTS ASYMMETRIC PULMONARY EDEMA SUPERIMPOSED ON COPD HOWEVER MULTIFOCAL PNEUMONIA IS ALSO IN THE DIFFERENTIAL. Assessment & Plan - Diagnosis (1) Pneumonia Qualifiers: Pneumonia type: due to unspecified organism Is this a current diagnosis for this admission?: Yes Plan: Breathing improved, currently on 2L - Continue PO Levoquin to complete 7 day course - Extremely deconditioned, PT consulted for rehab evaluation - Will need SNF placement (2) COPD exacerbation Is this a current diagnosis for this admission?: Yes Plan: Long standing COPD, contributes to underlying breathing issues - Ordered Spiriva on 06/13/17 to optimize COPD regimen - Continue Duonebs and PRN Albuterol (3) Coronary artery disease Is this a current diagnosis for this admission?: Yes Plan: Stable, continue current medications (4) Do not resuscitate Is this a current diagnosis for this admission?: Yes (5) Squamous cell carcinoma of lung, stage IV Qualifiers: Laterality: unspecified laterality Qualified Code(s): C34.90 - Malignant neoplasm of unspecified part of unspecified bronchus or lung Is this a current diagnosis for this admission?: Yes Plan: Currently not actively treatment. Has outpatient medical oncologist. Will need to be improved clinically prior to entertaining additional treatment. - Time Time Spent with patient: Less than 15 minutes Within: when bed available - Referral has been made to both [facility] and
[2017-06-13] MEDS: RIVAROXABAN 10 MG TABLET PO SCH (16:39)
[2017-06-14] MEDS: IPRATROPIUM/ALBUTEROL 0.5-2.5 MG/3 ML AMPUL NEB SCH ×4 (02:23→20:08)
[2017-06-14] MEDS: BENZONATATE 100 MG CAPSULE PO SCH ×3 (05:57→22:24)
[2017-06-14] MEDS: LANSOPRAZOLE 30 MG TAB.RAP.DR PO SCH ×2 (05:57→16:39)
[2017-06-14 07:46] LABS: HEMATOCRIT 26.9 % (37.9-51.0); HEMOGLOBIN 8.2 g/dL (13.5-17.0); MEAN CORPUSCULAR HEMOGLOBIN 19.5 pg (27.0-33.4); MEAN CORPUSCULAR HGB CONC 30.5 g/dL (32.0-36.0); PLATELET COUNT 392 10^3/uL (150-450); WHITE BLOOD COUNT 10.4 10^3/uL (4.0-10.5)
[2017-06-14 08:15] LABS: MEAN CORPUSCULAR VOLUME 64 fl (80-97)
[2017-06-14] MEDS: LEVOFLOXACIN 750 MG TABLET PO SCH (09:24)
[2017-06-14] MEDS: TIOTROPIUM BROMIDE DPI 5 CAP/KIT (18 MCG/CAP) IH SCH (09:24)
[2017-06-14] MEDS: AMIODARONE HCL 200 MG TABLET PO SCH (09:24)
[2017-06-14] MEDS: PREDNISONE 20 MG TABLET PO SCH (09:24)
[2017-06-14] MEDS: METOPROLOL TARTRATE 25 MG TABLET PO SCH (09:25)
[2017-06-14] MEDS: BUPROPION HCL 75 MG TABLET PO SCH ×2 (09:25→22:24)
[2017-06-14] MEDS: FOLIC ACID 1 MG TABLET PO SCH (09:25)
[2017-06-14] MEDS: RIVAROXABAN 10 MG TABLET PO SCH (16:39)
[2017-06-14] MEDS: ACETAMINOPHEN 325 MG TABLET PO PRN ×2 (16:42→22:45)
--- NOTE | 2017-06-14 18:49 | PDOC PROGRESS REPORT ---
Subjective Progress Note for:: 06/14/17 Subjective:: No overnight events. Feeling better. Off O2. Has SOB with exertion, willing to work with PT. No other complaints. Denies fevers, chills, CP, SOB, abdominal pain, NV. Reason For Visit: PNEUMONIA Physical Exam Vital Signs: Temp Pulse Resp BP Pulse Ox 97.9 F 132 H 21 H 157/73 H 96 06/14/17 15:43 06/14/17 15:43 06/14/17 15:43 06/14/17 15:43 06/14/17 15:43 Intake & Output 06/13/17 06/14/17 06/15/17 06:59 06:59 06:59 Intake Total 2418 1560 1174 Output Total 76 Balance 2342 1560 1174 Weight 72.1 kg 73.5 kg General appearance: PRESENT: no acute distress, thin Head exam: PRESENT: atraumatic, normocephalic Mouth exam: PRESENT: moist Respiratory exam: PRESENT: unlabored, other - Course breath sounds throughout Cardiovascular exam: PRESENT: RRR. ABSENT: tachycardia GI/Abdominal exam: PRESENT: soft. ABSENT: tenderness Neurological exam: PRESENT: alert, awake, CN II-XII grossly intact Psychiatric exam: PRESENT: appropriate affect Results Laboratory Results: 06/14/17 06:33 06/13/17 08:30 06/14/17 06:33 WBC 10.4 RBC 4.20 L Hgb 8.2 L Hct 26.9 L MCV 64 L MCH 19.5 L MCHC 30.5 L RDW 19.0 H Plt Count 392 Impressions: Chest X-Ray 06/10/17 09:08 IMPRESSION: UNDERLYING EMPHYSEMA WITH PATCHY MULTIFOCAL AIRSPACE DISEASE AND MODERATE BILATERAL PLEURAL EFFUSIONS. PRESUMABLY THIS REPRESENTS ASYMMETRIC PULMONARY EDEMA SUPERIMPOSED ON COPD HOWEVER MULTIFOCAL PNEUMONIA IS ALSO IN THE DIFFERENTIAL. Assessment & Plan - Diagnosis (1) Pneumonia Qualifiers: Pneumonia type: due to unspecified organism Is this a current diagnosis for this admission?: Yes Plan: Breathing improved, off supplemental O2 at rest - Continue PO Levoquin to complete 7 day course - Extremely deconditioned, will need PT/OT at SNF - Will need SNF placement, awaiting insurance auth per social work note (2) COPD exacerbation Is this a current diagnosis for this admission?: Yes Plan: Long standing COPD, contributes to underlying breathing issues - Continue Duonebs and PRN Albuterol - Will start Spiriva as outpatient (3) Coronary artery disease Is this a current diagnosis for this admission?: Yes Plan: Stable, continue current medications (4) Do not resuscitate Is this a current diagnosis for this admission?: Yes (5) Squamous cell carcinoma of lung, stage IV Qualifiers: Laterality: unspecified laterality Qualified Code(s): C34.90 - Malignant neoplasm of unspecified part of unspecified bronchus or lung Is this a current diagnosis for this admission?: Yes Plan: Currently not actively treatment. Has outpatient medical oncologist. Will need to be improved clinically prior to entertaining additional treatment.
[2017-06-14] MEDS: NORMAL SALINE 1000 ML 1,000 ML IV PRN (22:24)
[2017-06-15] MEDS: IPRATROPIUM/ALBUTEROL 0.5-2.5 MG/3 ML AMPUL NEB SCH ×4 (02:00→20:16)
[2017-06-15] MEDS: HYDROCODONE BIT/HOMATROPINE 5-1.5 MG TABLET PO PRN ×2 (02:02→21:57)
[2017-06-15] MEDS: BENZONATATE 100 MG CAPSULE PO SCH ×3 (06:21→21:57)
[2017-06-15] MEDS: LANSOPRAZOLE 30 MG TAB.RAP.DR PO SCH ×2 (06:21→16:51)
[2017-06-15] MEDS: ACETAMINOPHEN 325 MG TABLET PO PRN ×2 (06:21→12:25)
[2017-06-15 08:57] LABS: HEMATOCRIT 29.3 % (37.9-51.0); HEMOGLOBIN 8.7 g/dL (13.5-17.0); MEAN CORPUSCULAR HGB CONC 29.7 g/dL (32.0-36.0); MEAN CORPUSCULAR VOLUME 64 fl (80-97); PLATELET COUNT 398 10^3/uL (150-450); RED BLOOD COUNT 4.57 10^6/uL (4.35-5.55); RED CELL DISTRIBUTION WIDTH 19.4 % (11.5-14.0); RETICULOCYTE COUNT (AUTO) 1.32 % (0.66-2.85); WHITE BLOOD COUNT 11.1 10^3/uL (4.0-10.5)
[2017-06-15 09:16] LABS: ANION GAP 6 (5-19); BLOOD UREA NITROGEN 14 mg/dL (7-20); CALCIUM 9.6 mg/dL (8.4-10.2); CARBON DIOXIDE 25 mmol/L (22-30); CHLORIDE 108 mmol/L (98-107); GLUCOSE 121 mg/dL (75-110); SODIUM 138.8 mmol/L (137-145)
[2017-06-15] MEDS: PREDNISONE 20 MG TABLET PO SCH (09:52)
[2017-06-15] MEDS: BUPROPION HCL 75 MG TABLET PO SCH ×2 (09:53→21:56)
[2017-06-15] MEDS: LEVOFLOXACIN 750 MG TABLET PO SCH (09:53)
[2017-06-15] MEDS: FOLIC ACID 1 MG TABLET PO SCH (09:53)
[2017-06-15] MEDS: AMIODARONE HCL 200 MG TABLET PO SCH (09:53)
[2017-06-15] MEDS: METOPROLOL TARTRATE 25 MG TABLET PO SCH (09:54)
[2017-06-15 10:26] LABS: IRON(TIBC) < 10.1 ug/dL (49-181)
[2017-06-15] MEDS: RIVAROXABAN 10 MG TABLET PO SCH (16:51)
[2017-06-15] MEDS: OXYCODONE HCL IR 5 MG TABLET PO PRN (16:51)
--- NOTE | 2017-06-15 19:21 | PDOC PROGRESS REPORT ---
Subjective Progress Note for:: 06/15/17 Subjective:: Continuing to do well. Denies respiratory symptoms. Not requiring O2 at rest. Walked with PT yesterday and had mild SOB. Denies CP or palpitations. Has mild back pain. PO intake good. Daily BMs. No other complaints. Reason For Visit: PNEUMONIA Physical Exam Vital Signs: Temp Pulse Resp BP Pulse Ox 97.8 F 82 16 145/64 H 90 L 06/15/17 15:47 06/15/17 15:47 06/15/17 15:47 06/15/17 15:47 06/15/17 15:47 Intake & Output 06/14/17 06/15/17 06/16/17 06:59 06:59 06:59 Intake Total 1560 2358 337 Balance 1560 2358 337 Weight 73.5 kg 74.2 kg Results Laboratory Results: 06/15/17 08:00 06/15/17 08:00 06/15/17 06/15/17 08:00 08:00 WBC 11.1 H RBC 4.57 Hgb 8.7 L Hct 29.3 L MCV 64 L MCH 19.0 L MCHC 29.7 L RDW 19.4 H Plt Count 398 Retic Count (auto) 1.32 Absolute Retic 0.060 Sodium 138.8 Potassium 4.0 Chloride 108 H Carbon Dioxide 25 Anion Gap 6 BUN 14 Creatinine 0.71 Est GFR ( Amer) > 60 Est GFR (Non-Af Amer) > 60 Glucose 121 H Calcium 9.6 Iron < 10.1 L TIBC 312 % Saturation UNABLE TO CALCULATE Ferritin 44.50 Vitamin B12 > 1000.0 H Folate 17.50 Impressions: Chest X-Ray 06/10/17 09:08 IMPRESSION: UNDERLYING EMPHYSEMA WITH PATCHY MULTIFOCAL AIRSPACE DISEASE AND MODERATE BILATERAL PLEURAL EFFUSIONS. PRESUMABLY THIS REPRESENTS ASYMMETRIC PULMONARY EDEMA SUPERIMPOSED ON COPD HOWEVER MULTIFOCAL PNEUMONIA IS ALSO IN THE DIFFERENTIAL. Assessment & Plan - Diagnosis (1) Pneumonia Qualifiers: Pneumonia type: due to unspecified organism Is this a current diagnosis for this admission?: Yes Plan: Breathing improved, off supplemental O2 at rest - Continue PO Levoquin to complete 7 day course, finish on 06/20 - Extremely deconditioned, will need PT/OT at SNF - Will need SNF placement, awaiting insurance auth per social work note (2) Iron deficiency anemia Qualifiers: Iron deficiency anemia type: inadequate dietary iron intake Qualified Code( s): D50.8 - Other iron deficiency anemias Is this a current diagnosis for this admission?: Yes Plan: Known anemia, normocytic - Iron panel ordered: total iron <10 - Ordered IV Venofer first dose now, then PO iron daily - B12/folate WNL (3) COPD exacerbation Is this a current diagnosis for this admission?: Yes Plan: Long standing COPD, contributes to underlying breathing issues - Continue Duonebs and PRN Albuterol while inhouse - Will start Spiriva as outpatient (4) Coronary artery disease Is this a current diagnosis for this admission?: Yes (5) Do not resuscitate Is this a current diagnosis for this admission?: Yes (6) Squamous cell carcinoma of lung, stage IV Qualifiers: Laterality: unspecified laterality Qualified Code(s): C34.90 - Malignant neoplasm of unspecified part of unspecified bronchus or lung Is this a current diagnosis for this admission?: Yes Plan: Currently not actively treatment. Has outpatient medical oncologist. Will need to be improved clinically prior to entertaining additional treatment. - Time Time Spent with patient: Less than 15 minutes Within: when bed available
[2017-06-15] MEDS ORDERED: IRON SUCROSE COMPLEX INJ/PF 100 MG/5 ML SDV IV ONE (20:30)
[2017-06-16] MEDS: OXYCODONE HCL IR 5 MG TABLET PO PRN ×3 (00:43→22:40)
[2017-06-16] MEDS: IPRATROPIUM/ALBUTEROL 0.5-2.5 MG/3 ML AMPUL NEB SCH ×4 (02:04→20:24)
[2017-06-16 05:04] LABS: HEMATOCRIT 26.9 % (37.9-51.0); HEMOGLOBIN 8.1 g/dL (13.5-17.0); MEAN CORPUSCULAR VOLUME 63 fl (80-97); PLATELET COUNT 375 10^3/uL (150-450); RED BLOOD COUNT 4.25 10^6/uL (4.35-5.55); WHITE BLOOD COUNT 10.2 10^3/uL (4.0-10.5)
[2017-06-16 05:20] LABS: BLOOD UREA NITROGEN 17 mg/dL (7-20); CALCIUM 9.1 mg/dL (8.4-10.2); GLUCOSE 93 mg/dL (75-110)
[2017-06-16 05:40] LABS: ANION GAP 4 (5-19); POTASSIUM 3.9 mmol/L (3.6-5.0)
[2017-06-16 05:41] LABS: CARBON DIOXIDE 26 mmol/L (22-30); CHLORIDE 109 mmol/L (98-107); SODIUM 138.8 mmol/L (137-145)
[2017-06-16] MEDS: LANSOPRAZOLE 30 MG TAB.RAP.DR PO SCH ×2 (07:08→16:42)
[2017-06-16] MEDS: BENZONATATE 100 MG CAPSULE PO SCH ×3 (07:08→21:10)
[2017-06-16] MEDS: NORMAL SALINE 1000 ML 1,000 ML IV PRN (08:40)
[2017-06-16] MEDS: IRON POLYSACCHARIDES COMPLEX 150 MG CAPSULE PO SCH (09:26)
[2017-06-16] MEDS: LEVOFLOXACIN 750 MG TABLET PO SCH (09:27)
[2017-06-16] MEDS: BUPROPION HCL 75 MG TABLET PO SCH ×2 (09:27→21:10)
[2017-06-16] MEDS: FOLIC ACID 1 MG TABLET PO SCH (09:27)
[2017-06-16] MEDS: METOPROLOL TARTRATE 25 MG TABLET PO SCH (09:27)
[2017-06-16] MEDS: PREDNISONE 20 MG TABLET PO SCH (09:27)
[2017-06-16] MEDS: AMIODARONE HCL 200 MG TABLET PO SCH (09:27)
--- NOTE | 2017-06-16 11:55 | PDOC PROGRESS REPORT ---
Subjective Progress Note for:: 06/16/17 Subjective:: Continuing to do well. Overnight noted to de-saturate to high 80s and re- started on 2L O2. This AM good O2 sats and O2 discontinued. Denies fevers, chills, SOB, CP palpitations. Mild back pain controlled with PRN pains. PO intake good. BMs every other day. No other complaints. Reason For Visit: PNEUMONIA Physical Exam Vital Signs: Temp Pulse Resp BP Pulse Ox 97.8 F 80 18 130/70 H 96 06/16/17 07:46 06/16/17 08:33 06/16/17 08:33 06/16/17 07:46 06/16/17 08:33 Intake & Output 06/15/17 06/16/17 06/17/17 06:59 06:59 06:59 Intake Total 2358 1758 Balance 2358 1758 Weight 74.2 kg 73.7 kg General appearance: PRESENT: no acute distress, thin, well-developed, other - resting comfortably in bed Mouth exam: PRESENT: moist Respiratory exam: PRESENT: clear to auscultation joce, other - inspiratory crackles GI/Abdominal exam: PRESENT: soft. ABSENT: tenderness Extremities exam: ABSENT: pedal edema Neurological exam: PRESENT: alert, awake, CN II-XII grossly intact Skin exam: PRESENT: dry Results Laboratory Results: 06/16/17 04:37 06/16/17 04:37 06/16/17 06/16/17 04:37 04:37 WBC 10.2 RBC 4.25 L Hgb 8.1 L Hct 26.9 L MCV 63 L MCH 19.0 L MCHC 30.0 L RDW 19.0 H Plt Count 375 Sodium 138.8 Potassium 3.9 Chloride 109 H Carbon Dioxide 26 Anion Gap 4 L BUN 17 Creatinine 0.78 Est GFR ( Amer) > 60 Est GFR (Non-Af Amer) > 60 Glucose 93 Calcium 9.1 Impressions: Chest X-Ray 06/10/17 09:08 IMPRESSION: UNDERLYING EMPHYSEMA WITH PATCHY MULTIFOCAL AIRSPACE DISEASE AND MODERATE BILATERAL PLEURAL EFFUSIONS. PRESUMABLY THIS REPRESENTS ASYMMETRIC PULMONARY EDEMA SUPERIMPOSED ON COPD HOWEVER MULTIFOCAL PNEUMONIA IS ALSO IN THE DIFFERENTIAL. Assessment & Plan - Diagnosis (1) Pneumonia Qualifiers: Pneumonia type: due to unspecified organism Is this a current diagnosis for this admission?: Yes Plan: Breathing improved, off supplemental O2 at rest - Continue PO Levoquin to complete 7 day course, finish on 06/20 - Extremely deconditioned, will need PT/OT at SNF, continue working with PT while admitted - Pending SNF placement, awaiting insurance auth per social work note (2) Iron deficiency anemia Qualifiers: Iron deficiency anemia type: inadequate dietary iron intake Qualified Code( s): D50.8 - Other iron deficiency anemias Is this a current diagnosis for this admission?: Yes Plan: Known anemia, normocytic - Iron panel ordered: total iron <10 - Ordered IV Venofer on 06/15 however order was discontinued - Has PO iron daily started 06/16, reviewed major side effects including dark stools and constipation - Will likely need IV iron supplementation, can also be done as an outpatient. - B12/folate WNL (3) Nocturnal hypoxia Is this a current diagnosis for this admission?: Yes Plan: Given history of COPD and lung cancer this is not surprising - Would give 2L O2 at night - No O2 needed during day at rest unless noted to de-saturate or symptomatic - Supplemental O2 with activity (4) COPD exacerbation Is this a current diagnosis for this admission?: Yes Plan: Long standing COPD, contributes to underlying breathing issues - Continue Duonebs and PRN Albuterol while inhouse - Start Spiriva as outpatient (5) Coronary artery disease Is this a current diagnosis for this admission?: Yes Plan: Stable, continue current medications (6) Do not resuscitate Is this a current diagnosis for this admission?: Yes (7) Squamous cell carcinoma of lung, stage IV Qualifiers: Laterality: unspecified laterality Qualified Code(s): C34.90 - Malignant neoplasm of unspecified part of unspecified bronchus or lung Is this a current diagnosis for this admission?: Yes Plan: Currently not actively treatment. Has outpatient medical oncologist. Will need to be improved clinically prior to entertaining additional treatment. - Time Time Spent with patient: Less than 15 minutes Anticipated discharge: SNF Within: when bed available
[2017-06-16] MEDS: RIVAROXABAN 10 MG TABLET PO SCH (16:43)
[2017-06-16] MEDS: ACETAMINOPHEN 325 MG TABLET PO PRN (22:40)
[2017-06-17] MEDS: IPRATROPIUM/ALBUTEROL 0.5-2.5 MG/3 ML AMPUL NEB SCH ×4 (02:10→20:14)
[2017-06-17] MEDS: LANSOPRAZOLE 30 MG TAB.RAP.DR PO SCH ×2 (05:26→17:34)
[2017-06-17] MEDS: BENZONATATE 100 MG CAPSULE PO SCH ×3 (05:26→21:17)
[2017-06-17] MEDS: OXYCODONE HCL IR 5 MG TABLET PO PRN ×2 (05:26→21:18)
[2017-06-17] MEDS: BUPROPION HCL 75 MG TABLET PO SCH ×2 (10:06→21:17)
[2017-06-17] MEDS: LEVOFLOXACIN 750 MG TABLET PO SCH (10:06)
[2017-06-17] MEDS: FOLIC ACID 1 MG TABLET PO SCH (10:07)
[2017-06-17] MEDS: AMIODARONE HCL 200 MG TABLET PO SCH (10:07)
[2017-06-17] MEDS: PREDNISONE 20 MG TABLET PO SCH (10:07)
[2017-06-17] MEDS: METOPROLOL TARTRATE 25 MG TABLET PO SCH (10:07)
[2017-06-17] MEDS: IRON POLYSACCHARIDES COMPLEX 150 MG CAPSULE PO SCH (10:07)
--- NOTE | 2017-06-17 13:30 | PDOC PROGRESS REPORT ---
Subjective Progress Note for:: 06/17/17 Subjective:: Continuing to do well. Used 2L overnight. Has occasional back pain that is well controlled with current pain regimen. No fevers, chills, SOB, CP palpitations. PO intake good. BMs every other day. No other complaints. Reason For Visit: PNEUMONIA Physical Exam Vital Signs: Temp Pulse Resp BP Pulse Ox 98.4 F 88 16 118/68 96 06/17/17 07:44 06/17/17 08:41 06/17/17 08:41 06/17/17 07:44 06/17/17 08:41 Intake & Output 06/16/17 06/17/17 06/18/17 06:59 06:59 06:59 Intake Total 1758 1496 Balance 1758 1496 Weight 73.7 kg 73.3 kg General appearance: PRESENT: no acute distress, thin, other - Pleasant Head exam: PRESENT: normocephalic Mouth exam: PRESENT: moist Neck exam: ABSENT: JVD Respiratory exam: PRESENT: crackles - Inspiratory, unlabored Cardiovascular exam: PRESENT: RRR Musculoskeletal exam: PRESENT: full ROM Neurological exam: PRESENT: alert, awake, CN II-XII grossly intact Psychiatric exam: PRESENT: appropriate affect Results Laboratory Results: 06/16/17 04:37 06/16/17 04:37 06/15/17 08:00 Transferrin 223 Impressions: Chest X-Ray 06/10/17 09:08 IMPRESSION: UNDERLYING EMPHYSEMA WITH PATCHY MULTIFOCAL AIRSPACE DISEASE AND MODERATE BILATERAL PLEURAL EFFUSIONS. PRESUMABLY THIS REPRESENTS ASYMMETRIC PULMONARY EDEMA SUPERIMPOSED ON COPD HOWEVER MULTIFOCAL PNEUMONIA IS ALSO IN THE DIFFERENTIAL. Assessment & Plan - Diagnosis (1) Pneumonia Qualifiers: Pneumonia type: due to unspecified organism Is this a current diagnosis for this admission?: Yes Plan: Breathing improved, off supplemental O2 at rest - Continue PO Levoquin to complete 7 day course, finish on 06/20 - Extremely deconditioned, will need PT/OT at SNF, continue working with PT while admitted - Pending SNF placement, awaiting insurance auth per social work note (2) Iron deficiency anemia Qualifiers: Iron deficiency anemia type: inadequate dietary iron intake Qualified Code( s): D50.8 - Other iron deficiency anemias Is this a current diagnosis for this admission?: Yes Plan: Known anemia, normocytic - Iron panel ordered: total iron <10 - Ordered IV Venofer on 06/15 however order was discontinued - Has PO iron daily started 06/16, reviewed major side effects including dark stools and constipation - Will likely need IV iron supplementation, can also be done as an outpatient. - B12/folate WNL (3) Nocturnal hypoxia Is this a current diagnosis for this admission?: Yes Plan: Given history of COPD and lung cancer this is not surprising - Would give 2L O2 at night - No O2 needed during day at rest unless noted to de-saturate or symptomatic - Supplemental O2 with activity (4) COPD exacerbation Is this a current diagnosis for this admission?: Yes Plan: Long standing COPD, contributes to underlying breathing issues - Continue Duonebs and PRN Albuterol while inhouse - Start Spiriva as outpatient (5) Coronary artery disease Is this a current diagnosis for this admission?: Yes (6) Do not resuscitate Is this a current diagnosis for this admission?: Yes (7) Squamous cell carcinoma of lung, stage IV Qualifiers: Laterality: unspecified laterality Qualified Code(s): C34.90 - Malignant neoplasm of unspecified part of unspecified bronchus or lung Is this a current diagnosis for this admission?: Yes - Time Time Spent with patient: Less than 15 minutes Within: when bed available - Plan Summary Plan Summary: Stable, awaiting dispo
[2017-06-17] MEDS: RIVAROXABAN 10 MG TABLET PO SCH (17:35)
[2017-06-18] MEDS ORDERED: MAGNESIUM HYDROXIDE SUSP 30 ML UDCUP PO ONE (00:36)
[2017-06-18] MEDS: IPRATROPIUM/ALBUTEROL 0.5-2.5 MG/3 ML AMPUL NEB SCH ×4 (02:13→21:57)
[2017-06-18] MEDS: ACETAMINOPHEN 325 MG TABLET PO PRN ×2 (04:23→12:23)
[2017-06-18] MEDS: OXYCODONE HCL IR 5 MG TABLET PO PRN ×2 (04:23→11:05)
[2017-06-18] MEDS: NORMAL SALINE 1000 ML 1,000 ML IV PRN (05:51)
[2017-06-18] MEDS: LANSOPRAZOLE 30 MG TAB.RAP.DR PO SCH ×2 (05:51→17:40)
[2017-06-18] MEDS: BENZONATATE 100 MG CAPSULE PO SCH ×3 (05:51→21:36)
[2017-06-18] MEDS: POLYETHYLENE GLYCOL 3350 POWDER 17 GM/1 PACKET PO SCH (08:38)
[2017-06-18] MEDS: BUPROPION HCL 75 MG TABLET PO SCH ×2 (09:30→21:37)
[2017-06-18] MEDS: AMIODARONE HCL 200 MG TABLET PO SCH (09:30)
[2017-06-18] MEDS: IRON POLYSACCHARIDES COMPLEX 150 MG CAPSULE PO SCH (09:31)
[2017-06-18] MEDS: LEVOFLOXACIN 750 MG TABLET PO SCH (09:31)
[2017-06-18] MEDS: FOLIC ACID 1 MG TABLET PO SCH (09:31)
[2017-06-18] MEDS: DOCUSATE SODIUM 100 MG CAPSULE PO SCH ×2 (09:31→17:40)
[2017-06-18] MEDS: PREDNISONE 20 MG TABLET PO SCH (09:32)
[2017-06-18] MEDS: METOPROLOL TARTRATE 25 MG TABLET PO SCH (09:32)
[2017-06-18] MEDS ORDERED: FUROSEMIDE INJ/PF 20 MG/2 ML SDV IV ONE (09:48)
[2017-06-18] MEDS ORDERED: NA PHOS,M-B/NA PHOS,DI-BA (ADULT) 133 ML ENEMA PR PRN (13:32)
--- NOTE | 2017-06-18 13:54 | PDOC PROGRESS REPORT ---
Subjective Progress Note for:: 06/18/17 Subjective:: No overnight events. This AM noted to have increased abdominal distention. Has not had BM in 3 days. Using pain meds for back pain. No fevers, chills, SOB, CP palpitations. PO intake good. Reason For Visit: PNEUMONIA Physical Exam Vital Signs: Temp Pulse Resp BP Pulse Ox 98.2 F 73 18 135/58 H 98 06/18/17 11:17 06/18/17 11:17 06/18/17 11:17 06/18/17 11:17 06/18/17 11:17 Intake & Output 06/17/17 06/18/17 06/19/17 06:59 06:59 06:59 Intake Total 1496 2020 Balance 1496 2020 Weight 73.3 kg 74.2 kg General appearance: PRESENT: no acute distress, thin Head exam: PRESENT: normocephalic Mouth exam: PRESENT: moist Respiratory exam: PRESENT: prolonged expiratory phas, unlabored Cardiovascular exam: PRESENT: +S1, +S2 GI/Abdominal exam: PRESENT: distended, normal bowel sounds, soft Musculoskeletal exam: PRESENT: full ROM Neurological exam: PRESENT: alert, awake, CN II-XII grossly intact Psychiatric exam: PRESENT: appropriate affect Results Laboratory Results: 06/16/17 04:37 06/16/17 04:37 Impressions: Chest X-Ray 06/10/17 09:08 IMPRESSION: UNDERLYING EMPHYSEMA WITH PATCHY MULTIFOCAL AIRSPACE DISEASE AND MODERATE BILATERAL PLEURAL EFFUSIONS. PRESUMABLY THIS REPRESENTS ASYMMETRIC PULMONARY EDEMA SUPERIMPOSED ON COPD HOWEVER MULTIFOCAL PNEUMONIA IS ALSO IN THE DIFFERENTIAL. Assessment & Plan - Diagnosis (1) Constipation due to opioid therapy Is this a current diagnosis for this admission?: Yes Plan: New symptom as of 06/18. Per patient during previous conversations that he has BM 's qOD. However today notes that it has been 3 days since last BM. Has abdominal fullness but bowel sounds. No NV. Continues to eat without problems. - Added Miralax to BM regimen this AM without BM - This PM, added Ducolex suppository. Fleets enema added as well (PRN), If suppository is unsuccessful - Low threshold for abdominal flat plat if no improvement (2) Pneumonia Qualifiers: Pneumonia type: due to unspecified organism Is this a current diagnosis for this admission?: Yes Plan: Breathing improved, off supplemental O2 at rest - Continue PO Levoquin to complete 7 day course, finish on 06/20 - Extremely deconditioned, will need PT/OT at SNF, continue working with PT while admitted - Pending SNF placement, awaiting insurance auth per discharge planning (3) Iron deficiency anemia Qualifiers: Iron deficiency anemia type: inadequate dietary iron intake Qualified Code( s): D50.8 - Other iron deficiency anemias Is this a current diagnosis for this admission?: Yes Plan: Known anemia, normocytic - Iron panel ordered: total iron <10 - Ordered IV Venofer on 06/15 however order was discontinued - Has PO iron daily started 06/16, reviewed major side effects including dark stools and constipation - Will likely need IV iron supplementation, can also be done as an outpatient. - B12/folate WNL (4) Nocturnal hypoxia Is this a current diagnosis for this admission?: Yes Plan: Given history of COPD and lung cancer this is not surprising - Would give 2L O2 at night - No O2 needed during day at rest unless noted to de-saturate or symptomatic - Supplemental O2 with activity (5) COPD exacerbation Is this a current diagnosis for this admission?: Yes Plan: Long standing COPD, contributes to underlying breathing issues - Continue Duonebs and PRN Albuterol while inhouse - Start Spiriva as outpatient (6) Coronary artery disease Is this a current diagnosis for this admission?: Yes Plan: Stable, continue current medications (7) Do not resuscitate Is this a current diagnosis for this admission?: Yes (8) Squamous cell carcinoma of lung, stage IV Qualifiers: Laterality: unspecified laterality Qualified Code(s): C34.90 - Malignant neoplasm of unspecified part of unspecified bronchus or lung Is this a current diagnosis for this admission?: Yes Plan: Currently not actively treatment. Has outpatient medical oncologist. Will need to be improved clinically prior to entertaining additional treatment. - Time Time Spent with patient: Less than 15 minutes Within: when bed available
[2017-06-18] MEDS ORDERED: BISACODYL 10 MG SUPP.RECT PR ONE (14:00)
[2017-06-18] MEDS ORDERED: KETOROLAC TROMETHAMINE INJ/PF 30 MG/1 ML SDV IV ONE (14:00)
[2017-06-18] MEDS: RIVAROXABAN 10 MG TABLET PO SCH (17:40)
[2017-06-19] MEDS: IPRATROPIUM/ALBUTEROL 0.5-2.5 MG/3 ML AMPUL NEB SCH ×4 (02:22→20:36)
[2017-06-19] MEDS: BENZONATATE 100 MG CAPSULE PO SCH ×3 (05:31→21:33)
[2017-06-19] MEDS: LANSOPRAZOLE 30 MG TAB.RAP.DR PO SCH ×2 (05:31→18:04)
[2017-06-19] MEDS: METOPROLOL TARTRATE 25 MG TABLET PO SCH (09:44)
[2017-06-19] MEDS: PREDNISONE 20 MG TABLET PO SCH (09:44)
[2017-06-19] MEDS: AMIODARONE HCL 200 MG TABLET PO SCH (09:44)
[2017-06-19] MEDS: FOLIC ACID 1 MG TABLET PO SCH (09:45)
[2017-06-19] MEDS: BUPROPION HCL 75 MG TABLET PO SCH ×2 (09:45→21:33)
[2017-06-19] MEDS: LEVOFLOXACIN 750 MG TABLET PO SCH (09:45)
[2017-06-19] MEDS: IRON POLYSACCHARIDES COMPLEX 150 MG CAPSULE PO SCH (09:45)
[2017-06-19] MEDS: POLYETHYLENE GLYCOL 3350 POWDER 17 GM/1 PACKET PO SCH (09:59)
[2017-06-19] MEDS: DOCUSATE SODIUM 100 MG CAPSULE PO SCH ×2 (09:59→18:03)
--- NOTE | 2017-06-19 16:19 | PDOC PROGRESS REPORT ---
Subjective Progress Note for:: 06/19/17 Subjective:: Denies any complaints. Reason For Visit: PNEUMONIA Physical Exam Vital Signs: Temp Pulse Resp BP Pulse Ox 98.1 F 76 16 108/57 L 93 06/19/17 11:31 06/19/17 14:00 06/19/17 13:49 06/19/17 11:31 06/19/17 13:49 Intake & Output 06/18/17 06/19/17 06/20/17 06:59 06:59 06:59 Intake Total 2020 322 459 Output Total 2520 Balance 2020 -2197 459 Weight 74.2 kg 72.2 kg General appearance: PRESENT: no acute distress Eye exam: PRESENT: conjunctiva pink. ABSENT: scleral icterus Mouth exam: PRESENT: moist, tongue midline Neck exam: ABSENT: JVD Respiratory exam: PRESENT: clear to auscultation joce. ABSENT: rales, rhonchi, wheezes Cardiovascular exam: PRESENT: RRR. ABSENT: diastolic murmur, rubs, systolic murmur GI/Abdominal exam: PRESENT: normal bowel sounds, soft. ABSENT: distended, guarding, mass, organolmegaly, rebound, tenderness Extremities exam: ABSENT: calf tenderness, clubbing, pedal edema Neurological exam: PRESENT: alert, awake, oriented to person, oriented to place , oriented to time, oriented to situation, CN II-XII grossly intact. ABSENT: motor sensory deficit Psychiatric exam: PRESENT: appropriate affect Skin exam: PRESENT: dry, intact, warm. ABSENT: cyanosis, rash Results Laboratory Results: 06/16/17 04:37 06/16/17 04:37 Impressions: Chest X-Ray 06/10/17 09:08 IMPRESSION: UNDERLYING EMPHYSEMA WITH PATCHY MULTIFOCAL AIRSPACE DISEASE AND MODERATE BILATERAL PLEURAL EFFUSIONS. PRESUMABLY THIS REPRESENTS ASYMMETRIC PULMONARY EDEMA SUPERIMPOSED ON COPD HOWEVER MULTIFOCAL PNEUMONIA IS ALSO IN THE DIFFERENTIAL. Assessment & Plan - Diagnosis (1) Respiratory failure Qualifiers: Chronicity: acute Respiratory failure complication: unspecified whether with hypoxia or hypercapnia Qualified Code(s): J96.00 - Acute respiratory failure, unspecified whether with hypoxia or hypercapnia Is this a current diagnosis for this admission?: Yes Plan: Secondary to pneumonia and acute COPD exacerbation. Resolving. (2) Pneumonia Qualifiers: Pneumonia type: due to unspecified organism Is this a current diagnosis for this admission?: Yes Plan: Last day of [facility] is tomorrow. (3) COPD exacerbation Is this a current diagnosis for this admission?: Yes Plan: Continue with prednisone and nebulizers. (4) Atrial fibrillation Is this a current diagnosis for this admission?: Yes Plan: Patient is rate control. Continue with the Xarelto for anticoagulation. (5) Coronary artery disease Is this a current diagnosis for this admission?: Yes Plan: Denies any chest pain. (6) Peripheral vascular disease Is this a current diagnosis for this admission?: Yes Plan: Patient has had multiple stent placements in his legs. (7) Squamous cell carcinoma of lung, stage IV Qualifiers: Laterality: unspecified laterality Qualified Code(s): C34.90 - Malignant neoplasm of unspecified part of unspecified bronchus or lung Is this a current diagnosis for this admission?: Yes Plan: Patient reports that his last chemotherapy was in April. (8) Do not resuscitate Is this a current diagnosis for this admission?: Yes Plan: Patient requests to be a DO NOT RESUSCITATE. (9) Constipation due to opioid therapy Is this a current diagnosis for this admission?: Yes - Time Time Spent with patient: 15-24 minutes - Plan Summary Plan Summary: We will discharge to rehab when a bed becomes available.
[2017-06-19] MEDS: RIVAROXABAN 10 MG TABLET PO SCH (18:05)
[2017-06-19] MEDS: OXYCODONE HCL IR 5 MG TABLET PO PRN (23:37)
[2017-06-20] MEDS: IPRATROPIUM/ALBUTEROL 0.5-2.5 MG/3 ML AMPUL NEB SCH ×4 (01:53→20:52)
[2017-06-20] MEDS: LANSOPRAZOLE 30 MG TAB.RAP.DR PO SCH ×2 (05:22→16:36)
[2017-06-20] MEDS: BENZONATATE 100 MG CAPSULE PO SCH ×3 (05:22→21:03)
[2017-06-20 06:04] LABS: HEMATOCRIT 22.3 % (37.9-51.0); MEAN CORPUSCULAR HEMOGLOBIN 19.6 pg (27.0-33.4); MEAN CORPUSCULAR HGB CONC 30.4 g/dL (32.0-36.0); MEAN CORPUSCULAR VOLUME 64 fl (80-97); PLATELET COUNT 271 10^3/uL (150-450); RED BLOOD COUNT 3.46 10^6/uL (4.35-5.55); RED CELL DISTRIBUTION WIDTH 19.1 % (11.5-14.0); WHITE BLOOD COUNT 9.4 10^3/uL (4.0-10.5)
[2017-06-20 06:25] LABS: BLOOD UREA NITROGEN 16 mg/dL (7-20); CALCIUM 8.6 mg/dL (8.4-10.2); CARBON DIOXIDE 28 mmol/L (22-30); CHLORIDE 106 mmol/L (98-107); GLUCOSE 83 mg/dL (75-110); POTASSIUM 3.8 mmol/L (3.6-5.0)
[2017-06-20 06:31] LABS: HEMOGLOBIN 6.8 g/dL (13.5-17.0)
[2017-06-20 06:36] LABS: SODIUM 136.4 mmol/L (137-145)
[2017-06-20 06:37] LABS: ABSOLUTE LYMPHOCYTES# (MANUAL) 0.8 10^3/uL (0.5-4.7); ABSOLUTE MONOCYTES # (MANUAL) 0.5 10^3/uL (0.1-1.4); ABSOLUTE NEUTROPHILS# (MANUAL) 8.1 10^3/uL (1.7-8.2); BAND NEUTROPHILS % (MANUAL) 2 % (3-5); BASOPHILS % (MANUAL) 0 % (0-2); EOSINOPHILS % (MANUAL) 0 % (0-6); LYMPHOCYTES % (MANUAL) 9 % (13-45); MONOCYTES % (MANUAL) 5 % (3-13); SEGMENTED NEUTROPHILS % (MAN) 84 % (42-78); TOTAL CELLS COUNTED 100
[2017-06-20 06:40] LABS: HYPOCHROMASIA 2+; TOXIC GRANULATION 2+; TOXIC VACUOLATION PRESENT
[2017-06-20 06:41] LABS: ANISOCYTOSIS 2+; BURR CELLS SLIGHT; OVALOCYTES 1+; PLATELET COMMENT ADEQUATE; PLATELET LARGE PRESENT; POIKILOCYTOSIS 2+; SCHISTOCYTES 2+; TEAR DROP CELLS SLIGHT
[2017-06-20 06:42] LABS: ANION GAP 2 (5-19)
[2017-06-20] MEDS ORDERED: NORMAL SALINE 250 ML IV PRN ×2 (07:34)
[2017-06-20] MEDS: AMIODARONE HCL 200 MG TABLET PO SCH (09:14)
[2017-06-20] MEDS: METOPROLOL TARTRATE 25 MG TABLET PO SCH (09:15)
[2017-06-20] MEDS: BUPROPION HCL 75 MG TABLET PO SCH ×2 (09:15→21:03)
[2017-06-20] MEDS: FOLIC ACID 1 MG TABLET PO SCH (09:15)
[2017-06-20] MEDS: PREDNISONE 20 MG TABLET PO SCH (09:15)
[2017-06-20] MEDS: POLYETHYLENE GLYCOL 3350 POWDER 17 GM/1 PACKET PO SCH ×2 (09:16→16:36)
[2017-06-20] MEDS: LEVOFLOXACIN 750 MG TABLET PO SCH (09:16)
[2017-06-20] MEDS: DOCUSATE SODIUM 100 MG CAPSULE PO SCH ×2 (09:16→20:37)
--- NOTE | 2017-06-20 11:15 | PDOC PROGRESS REPORT ---
Subjective Progress Note for:: 06/20/17 Subjective:: Denies any complaints. He is noted to have a decreased hemoglobin this morning. Reason For Visit: PNEUMONIA Physical Exam Vital Signs: Temp Pulse Resp BP Pulse Ox 98.1 F 74 16 104/49 L 90 L 06/20/17 10:54 06/20/17 10:54 06/20/17 10:54 06/20/17 10:54 06/20/17 10:54 Intake & Output 06/19/17 06/20/17 06/21/17 06:59 06:59 06:59 Intake Total 322 836 0 Output Total 2520 3050 Balance -2198 -2214 0 Weight 72.2 kg 69.5 kg General appearance: PRESENT: no acute distress Eye exam: PRESENT: conjunctiva pink. ABSENT: scleral icterus Mouth exam: PRESENT: moist, tongue midline Neck exam: ABSENT: JVD Respiratory exam: PRESENT: clear to auscultation joce. ABSENT: rales, rhonchi, wheezes Cardiovascular exam: PRESENT: RRR. ABSENT: diastolic murmur, rubs, systolic murmur GI/Abdominal exam: PRESENT: normal bowel sounds, soft. ABSENT: distended, guarding, mass, organolmegaly, rebound, tenderness Extremities exam: ABSENT: calf tenderness, clubbing, pedal edema Neurological exam: PRESENT: alert, awake, oriented to person, oriented to place , oriented to time, oriented to situation, CN II-XII grossly intact. ABSENT: motor sensory deficit Psychiatric exam: PRESENT: appropriate affect Skin exam: PRESENT: dry, intact, warm. ABSENT: cyanosis, rash Results Laboratory Results: 06/20/17 05:22 06/20/17 05:22 06/20/17 06/20/17 06/20/17 05:22 05:22 08:24 WBC 9.4 RBC 3.46 L Hgb 6.8 L Hct 22.3 L MCV 64 L MCH 19.6 L MCHC 30.4 L RDW 19.1 H Plt Count 271 Seg Neutrophils % Not Reportable Lymphocytes % Not Reportable Monocytes % Not Reportable Eosinophils % Not Reportable Basophils % Not Reportable Absolute Neutrophils Not Reportable Absolute Lymphocytes Not Reportable Absolute Monocytes Not Reportable Absolute Eosinophils Not Reportable Absolute Basophils Not Reportable Sodium 136.4 L Potassium 3.8 Chloride 106 Carbon Dioxide 28 Anion Gap 2 L BUN 16 Creatinine 0.75 Est GFR ( Amer) > 60 Est GFR (Non-Af Amer) > 60 Glucose 83 Calcium 8.6 Stool Occult Blood Blood Type A POSITIVE Antibody Screen NEGATIVE 06/20/17 08:35 WBC RBC Hgb Hct MCV MCH MCHC RDW Plt Count Seg Neutrophils % Lymphocytes % Monocytes % Eosinophils % Basophils % Absolute Neutrophils Absolute Lymphocytes Absolute Monocytes Absolute Eosinophils Absolute Basophils Sodium Potassium Chloride Carbon Dioxide Anion Gap BUN Creatinine Est GFR ( Amer) Est GFR (Non-Af Amer) Glucose Calcium Stool Occult Blood POSITIVE Blood Type Antibody Screen Impressions: Chest X-Ray 06/10/17 09:08 IMPRESSION: UNDERLYING EMPHYSEMA WITH PATCHY MULTIFOCAL AIRSPACE DISEASE AND MODERATE BILATERAL PLEURAL EFFUSIONS. PRESUMABLY THIS REPRESENTS ASYMMETRIC PULMONARY EDEMA SUPERIMPOSED ON COPD HOWEVER MULTIFOCAL PNEUMONIA IS ALSO IN THE DIFFERENTIAL. Assessment & Plan - Diagnosis (1) Respiratory failure Qualifiers: Chronicity: acute Respiratory failure complication: unspecified whether with hypoxia or hypercapnia Qualified Code(s): J96.00 - Acute respiratory failure, unspecified whether with hypoxia or hypercapnia Is this a current diagnosis for this admission?: Yes Plan: Secondary to pneumonia and acute COPD exacerbation. Resolving. (2) Pneumonia Qualifiers: Pneumonia type: due to unspecified organism Is this a current diagnosis for this admission?: Yes Plan: Last day of Levaquin is today. (3) COPD exacerbation Is this a current diagnosis for this admission?: Yes Plan: Continue with prednisone and nebulizers. (4) Atrial fibrillation Is this a current diagnosis for this admission?: Yes Plan: Patient is rate control. Continue with the Xarelto for anticoagulation. (5) Coronary artery disease Is this a current diagnosis for this admission?: Yes Plan: Denies any chest pain. (6) Peripheral vascular disease Is this a current diagnosis for this admission?: Yes Plan: Patient has had multiple stent placements in his legs. (7) Squamous cell carcinoma of lung, stage IV Qualifiers: Laterality: unspecified laterality Qualified Code(s): C34.90 - Malignant neoplasm of unspecified part of unspecified bronchus or lung Is this a current diagnosis for this admission?: Yes Plan: Patient reports that his last chemotherapy was in April. (8) Do not resuscitate Is this a current diagnosis for this admission?: Yes Plan: Patient requests to be a DO NOT RESUSCITATE. (9) Constipation due to opioid therapy Is this a current diagnosis for this admission?: Yes - Time Time Spent with patient: 25-34 minutes - Inpatient Certification Medical Necessity: Need Close Monitoring Due to Risk of Patient Decompensation - Plan Summary Plan Summary: Awaiting placement for rehab.
[2017-06-20] MEDS: IRON POLYSACCHARIDES COMPLEX 150 MG CAPSULE PO SCH (12:39)
[2017-06-20] MEDS: RIVAROXABAN 10 MG TABLET PO SCH (16:37)
[2017-06-20 20:47] LABS: ABSOLUTE LYMPHOCYTES (AUTO) 0.4 10^3/uL (0.5-4.7); ABSOLUTE MONOCYTES (AUTO) 0.2 10^3/uL (0.1-1.4); ABSOLUTE NEUT (AUTO) 6.4 10^3/uL (1.7-8.2); BASOPHILS % (AUTO) 0.6 % (0-2); HEMATOCRIT 35.8 % (37.9-51.0); LYMPHOCYTES % (AUTO) 5.4 % (13-45); MEAN CORPUSCULAR HGB CONC 31.8 g/dL (32.0-36.0); MONOCYTES % (AUTO) 3.5 % (3-13); PLATELET COUNT 224 10^3/uL (150-450); RED BLOOD COUNT 4.95 10^6/uL (4.35-5.55); RED CELL DISTRIBUTION WIDTH 28.7 % (11.5-14.0); SEGMENTED NEUTROPHILS % (AUTO) 90.5 % (42-78); TOTAL CELLS COUNTED % (AUTO) 100 %; WHITE BLOOD COUNT 7.1 10^3/uL (4.0-10.5)
[2017-06-20] MEDS: OXYCODONE HCL IR 5 MG TABLET PO PRN (21:03)
[2017-06-20 21:15] LABS: PLATELET COMMENT ADEQUATE
[2017-06-20 21:16] LABS: HYPOCHROMASIA 2+; POLYCHROMASIA SLIGHT
[2017-06-20 21:17] LABS: ANISOCYTOSIS 2+; POIKILOCYTOSIS 3+
[2017-06-20 21:18] LABS: BURR CELLS 2+; OVALOCYTES SLIGHT; TARGET CELLS SLIGHT; TEAR DROP CELLS SLIGHT
[2017-06-20 21:20] LABS: HEMOGLOBIN 11.4 g/dL (13.5-17.0); MEAN CORPUSCULAR VOLUME 72 fl (80-97)
[2017-06-21] MEDS: IPRATROPIUM/ALBUTEROL 0.5-2.5 MG/3 ML AMPUL NEB SCH ×4 (02:02→20:04)
[2017-06-21] MEDS: BENZONATATE 100 MG CAPSULE PO SCH ×3 (05:15→22:28)
[2017-06-21] MEDS: LANSOPRAZOLE 30 MG TAB.RAP.DR PO SCH ×2 (05:15→16:37)
[2017-06-21 05:34] LABS: ABSOLUTE LYMPHOCYTES (AUTO) 0.8 10^3/uL (0.5-4.7); ABSOLUTE MONOCYTES (AUTO) 0.5 10^3/uL (0.1-1.4); ABSOLUTE NEUT (AUTO) 6.5 10^3/uL (1.7-8.2); BASOPHILS % (AUTO) 0.4 % (0-2); HEMATOCRIT 30.3 % (37.9-51.0); HEMOGLOBIN 9.9 g/dL (13.5-17.0); LYMPHOCYTES % (AUTO) 10.1 % (13-45); MEAN CORPUSCULAR HEMOGLOBIN 23.2 pg (27.0-33.4); MEAN CORPUSCULAR HGB CONC 32.6 g/dL (32.0-36.0); MEAN CORPUSCULAR VOLUME 71 fl (80-97); PLATELET COUNT 202 10^3/uL (150-450); RED BLOOD COUNT 4.26 10^6/uL (4.35-5.55); RED CELL DISTRIBUTION WIDTH 28.2 % (11.5-14.0); SEGMENTED NEUTROPHILS % (AUTO) 82.5 % (42-78); TOTAL CELLS COUNTED % (AUTO) 100 %; WHITE BLOOD COUNT 7.9 10^3/uL (4.0-10.5)
[2017-06-21 05:52] LABS: BLOOD UREA NITROGEN 13 mg/dL (7-20); CALCIUM 8.4 mg/dL (8.4-10.2); CHLORIDE 106 mmol/L (98-107); GLUCOSE 96 mg/dL (75-110); POTASSIUM 3.9 mmol/L (3.6-5.0)
[2017-06-21 06:07] LABS: CARBON DIOXIDE 27 mmol/L (22-30)
[2017-06-21 06:08] LABS: ANION GAP 3 (5-19)
[2017-06-21 06:31] LABS: ANISOCYTOSIS 4+; BURR CELLS SLIGHT; HYPOCHROMASIA 1+; OVALOCYTES SLIGHT; PLATELET COMMENT ADEQUATE; POIKILOCYTOSIS SLIGHT; POLYCHROMASIA 1+; TEAR DROP CELLS SLIGHT; TOXIC GRANULATION 1+
[2017-06-21] MEDS: FOLIC ACID 1 MG TABLET PO SCH (09:38)
[2017-06-21] MEDS: LEVOFLOXACIN 750 MG TABLET PO SCH (09:38)
[2017-06-21] MEDS: POLYETHYLENE GLYCOL 3350 POWDER 17 GM/1 PACKET PO SCH (09:38)
[2017-06-21] MEDS: METOPROLOL TARTRATE 25 MG TABLET PO SCH (09:39)
[2017-06-21] MEDS: AMIODARONE HCL 200 MG TABLET PO SCH (09:39)
[2017-06-21] MEDS: DOCUSATE SODIUM 100 MG CAPSULE PO SCH ×2 (09:39→18:24)
[2017-06-21] MEDS: PREDNISONE 20 MG TABLET PO SCH (09:40)
[2017-06-21] MEDS: BUPROPION HCL 75 MG TABLET PO SCH ×2 (09:40→22:28)
[2017-06-21] MEDS ORDERED: DILTIAZEM HCL/D5W 125 MG/125 ML RTUINJ IV PRN (10:34)
[2017-06-21] MEDS ORDERED: DILTIAZEM HCL INJ 25 MG/5 ML VIAL IV ONE (11:00)
[2017-06-21] MEDS: IRON POLYSACCHARIDES COMPLEX 150 MG CAPSULE PO SCH (12:08)
--- NOTE | 2017-06-21 13:55 | PDOC PROGRESS REPORT ---
Subjective Progress Note for:: 06/21/17 Subjective:: Denies any complaints. Reason For Visit: PNEUMONIA Physical Exam Vital Signs: Temp Pulse Resp BP Pulse Ox 98.4 F 83 14 139/66 H 95 06/21/17 08:14 06/21/17 08:28 06/21/17 08:28 06/21/17 08:14 06/21/17 08:28 Intake & Output 06/20/17 06/21/17 06/22/17 06:59 06:59 06:59 Intake Total 836 2168 Output Total 3050 2500 Balance -2214 -332 Weight 69.5 kg 67.3 kg General appearance: PRESENT: no acute distress Eye exam: PRESENT: conjunctiva pink. ABSENT: scleral icterus Mouth exam: PRESENT: moist, tongue midline Neck exam: ABSENT: JVD Respiratory exam: PRESENT: clear to auscultation joce. ABSENT: rales, rhonchi, wheezes Cardiovascular exam: PRESENT: RRR. ABSENT: diastolic murmur, rubs, systolic murmur GI/Abdominal exam: PRESENT: normal bowel sounds, soft. ABSENT: distended, guarding, mass, organolmegaly, rebound, tenderness Extremities exam: ABSENT: calf tenderness, clubbing, pedal edema Neurological exam: PRESENT: alert, awake, oriented to person, oriented to place , oriented to time, oriented to situation, CN II-XII grossly intact. ABSENT: motor sensory deficit Psychiatric exam: PRESENT: appropriate affect Skin exam: PRESENT: dry, intact, warm. ABSENT: cyanosis, rash Results Laboratory Results: 06/21/17 04:51 06/21/17 04:51 06/20/17 06/20/17 06/21/17 08:24 20:15 03:30 WBC 7.1 RBC 4.95 Hgb 11.4 L D Hct 35.8 L MCV 72 L D MCH 23.0 L MCHC 31.8 L RDW 28.7 H Plt Count 224 Seg Neutrophils % 90.5 H Lymphocytes % 5.4 L Monocytes % 3.5 Eosinophils % 0.0 Basophils % 0.6 Absolute Neutrophils 6.4 Absolute Lymphocytes 0.4 L Absolute Monocytes 0.2 Absolute Eosinophils 0.0 Absolute Basophils 0.0 Sodium Potassium Chloride Carbon Dioxide Anion Gap BUN Creatinine Est GFR ( Amer) Est GFR (Non-Af Amer) Glucose Calcium Stool Occult Blood POSITIVE Blood Type A POSITIVE Antibody Screen NEGATIVE 06/21/17 06/21/17 04:51 04:51 WBC 7.9 RBC 4.26 L Hgb 9.9 L Hct 30.3 L MCV 71 L MCH 23.2 L MCHC 32.6 RDW 28.2 H Plt Count 202 Seg Neutrophils % 82.5 H Lymphocytes % 10.1 L Monocytes % 7.0 Eosinophils % 0.0 Basophils % 0.4 Absolute Neutrophils 6.5 Absolute Lymphocytes 0.8 Absolute Monocytes 0.5 Absolute Eosinophils 0.0 Absolute Basophils 0.0 Sodium 136.0 L Potassium 3.9 Chloride 106 Carbon Dioxide 27 Anion Gap 3 L BUN 13 Creatinine 0.75 Est GFR ( Amer) > 60 Est GFR (Non-Af Amer) > 60 Glucose 96 Calcium 8.4 Stool Occult Blood Blood Type Antibody Screen Impressions: Chest X-Ray 06/10/17 09:08 IMPRESSION: UNDERLYING EMPHYSEMA WITH PATCHY MULTIFOCAL AIRSPACE DISEASE AND MODERATE BILATERAL PLEURAL EFFUSIONS. PRESUMABLY THIS REPRESENTS ASYMMETRIC PULMONARY EDEMA SUPERIMPOSED ON COPD HOWEVER MULTIFOCAL PNEUMONIA IS ALSO IN THE DIFFERENTIAL. Assessment & Plan - Diagnosis (1) Respiratory failure Qualifiers: Chronicity: acute Respiratory failure complication: unspecified whether with hypoxia or hypercapnia Qualified Code(s): J96.00 - Acute respiratory failure, unspecified whether with hypoxia or hypercapnia Is this a current diagnosis for this admission?: Yes Plan: Secondary to pneumonia and acute COPD exacerbation. Resolving. (2) Pneumonia Qualifiers: Pneumonia type: due to unspecified organism Is this a current diagnosis for this admission?: Yes Plan: Has completed a course of Levaquin. (3) COPD exacerbation Is this a current diagnosis for this admission?: Yes Plan: Continue with prednisone and nebulizers. (4) Atrial fibrillation Is this a current diagnosis for this admission?: Yes Plan: Patient is rate control. Continue with the Xarelto for anticoagulation. (5) Coronary artery disease Is this a current diagnosis for this admission?: Yes Plan: Denies any chest pain. (6) Peripheral vascular disease Is this a current diagnosis for this admission?: Yes Plan: Patient has had multiple stent placements in his legs. (7) Squamous cell carcinoma of lung, stage IV Qualifiers: Laterality: unspecified laterality Qualified Code(s): C34.90 - Malignant neoplasm of unspecified part of unspecified bronchus or lung Is this a current diagnosis for this admission?: Yes Plan: Patient reports that his last chemotherapy was in April. (8) Do not resuscitate Is this a current diagnosis for this admission?: Yes Plan: Patient requests to be a DO NOT RESUSCITATE. (9) Constipation due to opioid therapy Is this a current diagnosis for this admission?: Yes (10) Iron deficiency anemia Qualifiers: Iron deficiency anemia type: inadequate dietary iron intake Qualified Code( s): D50.8 - Other iron deficiency anemias Is this a current diagnosis for this admission?: Yes - Time Time Spent with patient: 25-34 minutes - Inpatient Certification Medical Necessity: Need Close Monitoring Due to Risk of Patient Decompensation
[2017-06-21] MEDS: RIVAROXABAN 10 MG TABLET PO SCH (16:36)
[2017-06-22] MEDS: IPRATROPIUM/ALBUTEROL 0.5-2.5 MG/3 ML AMPUL NEB SCH ×4 (01:58→20:21)
[2017-06-22] MEDS: LANSOPRAZOLE 30 MG TAB.RAP.DR PO SCH ×2 (05:45→16:59)
[2017-06-22] MEDS: BENZONATATE 100 MG CAPSULE PO SCH ×3 (05:45→21:00)
[2017-06-22] MEDS: PREDNISONE 20 MG TABLET PO SCH (09:24)
[2017-06-22] MEDS: FOLIC ACID 1 MG TABLET PO SCH (09:24)
[2017-06-22] MEDS: POLYETHYLENE GLYCOL 3350 POWDER 17 GM/1 PACKET PO SCH (09:25)
[2017-06-22] MEDS: AMIODARONE HCL 200 MG TABLET PO SCH (09:25)
[2017-06-22] MEDS: BUPROPION HCL 75 MG TABLET PO SCH ×2 (09:25→21:00)
[2017-06-22] MEDS: METOPROLOL TARTRATE 25 MG TABLET PO SCH (09:25)
[2017-06-22] MEDS: DOCUSATE SODIUM 100 MG CAPSULE PO SCH ×2 (09:25→18:23)
[2017-06-22] MEDS: IRON POLYSACCHARIDES COMPLEX 150 MG CAPSULE PO SCH (12:55)
--- NOTE | 2017-06-22 14:28 | PDOC PROGRESS REPORT ---
Subjective Progress Note for:: 06/22/17 Subjective:: Denies any complaints. Reason For Visit: PNEUMONIA Physical Exam Vital Signs: Temp Pulse Resp BP Pulse Ox 98.5 F 66 18 138/70 H 96 06/22/17 12:13 06/22/17 12:13 06/22/17 12:13 06/22/17 12:13 06/22/17 12:13 Intake & Output 06/21/17 06/22/17 06/23/17 06:59 06:59 06:59 Intake Total 2168 995 Output Total 2500 3450 Balance -332 -2455 Weight 67.3 kg 65.5 kg General appearance: PRESENT: no acute distress Eye exam: PRESENT: conjunctiva pink. ABSENT: scleral icterus Mouth exam: PRESENT: moist, tongue midline Neck exam: ABSENT: JVD Respiratory exam: PRESENT: clear to auscultation joce. ABSENT: rales, rhonchi, wheezes Cardiovascular exam: PRESENT: RRR. ABSENT: diastolic murmur, rubs, systolic murmur GI/Abdominal exam: PRESENT: normal bowel sounds, soft. ABSENT: distended, guarding, mass, organolmegaly, rebound, tenderness Extremities exam: ABSENT: calf tenderness, clubbing, pedal edema Neurological exam: PRESENT: alert, awake, oriented to person, oriented to place , oriented to time, oriented to situation, CN II-XII grossly intact. ABSENT: motor sensory deficit Psychiatric exam: PRESENT: appropriate affect Skin exam: PRESENT: dry, intact, warm. ABSENT: cyanosis, rash Results Laboratory Results: 06/21/17 04:51 06/21/17 04:51 Impressions: Chest X-Ray 06/10/17 09:08 IMPRESSION: UNDERLYING EMPHYSEMA WITH PATCHY MULTIFOCAL AIRSPACE DISEASE AND MODERATE BILATERAL PLEURAL EFFUSIONS. PRESUMABLY THIS REPRESENTS ASYMMETRIC PULMONARY EDEMA SUPERIMPOSED ON COPD HOWEVER MULTIFOCAL PNEUMONIA IS ALSO IN THE DIFFERENTIAL. Assessment & Plan - Diagnosis (1) Respiratory failure Qualifiers: Chronicity: acute Respiratory failure complication: unspecified whether with hypoxia or hypercapnia Qualified Code(s): J96.00 - Acute respiratory failure, unspecified whether with hypoxia or hypercapnia Is this a current diagnosis for this admission?: Yes Plan: Secondary to pneumonia and acute COPD exacerbation. Resolving. (2) Pneumonia Qualifiers: Pneumonia type: due to unspecified organism Is this a current diagnosis for this admission?: Yes Plan: Has completed a course of Levaquin. (3) COPD exacerbation Is this a current diagnosis for this admission?: Yes Plan: Continue with prednisone and nebulizers. (4) Atrial fibrillation Is this a current diagnosis for this admission?: Yes Plan: Patient is rate control. Continue with the Xarelto for anticoagulation. (5) Coronary artery disease Is this a current diagnosis for this admission?: Yes Plan: Denies any chest pain. (6) Peripheral vascular disease Is this a current diagnosis for this admission?: Yes Plan: Patient has had multiple stent placements in his legs. (7) Squamous cell carcinoma of lung, stage IV Qualifiers: Laterality: unspecified laterality Qualified Code(s): C34.90 - Malignant neoplasm of unspecified part of unspecified bronchus or lung Is this a current diagnosis for this admission?: Yes Plan: Patient reports that his last chemotherapy was in April. (8) Do not resuscitate Is this a current diagnosis for this admission?: Yes Plan: Patient requests to be a DO NOT RESUSCITATE. (9) Constipation due to opioid therapy Is this a current diagnosis for this admission?: Yes (10) Iron deficiency anemia Qualifiers: Iron deficiency anemia type: inadequate dietary iron intake Qualified Code( s): D50.8 - Other iron deficiency anemias Is this a current diagnosis for this admission?: Yes - Time Time Spent with patient: 15-24 minutes
[2017-06-22] MEDS: RIVAROXABAN 10 MG TABLET PO SCH (16:59)
[2017-06-22 23:36] LABS: APPEARANCE,URINE CLOUDY; BILIRUBIN,URINE NEGATIVE (NEGATIVE); COLOR,URINE RED; GLUCOSE, URINE NEGATIVE (NEGATIVE); KETONES,URINE NEGATIVE (NEGATIVE); LEUKOCYTE ESTERASE,URINE NEGATIVE (NEGATIVE); NITRITE,URINE NEGATIVE (NEGATIVE); PROTEIN,URINE 30 mg/dL (NEGATIVE); URINE SPECIFIC GRAVITY 1.006; UROBILINOGEN,URINE NEGATIVE mg/dL (<2.0)
[2017-06-23] MEDS: IPRATROPIUM/ALBUTEROL 0.5-2.5 MG/3 ML AMPUL NEB SCH ×4 (02:10→19:56)
[2017-06-23] MEDS ORDERED: DILTIAZEM HCL INJ 25 MG/5 ML VIAL ONE (04:42)
[2017-06-23] MEDS ORDERED: DILTIAZEM HCL INJ 25 MG/5 ML VIAL IV ONE (05:00)
[2017-06-23] MEDS ORDERED: METOPROLOL TARTRATE PF/INJ 5 MG/5 ML SDV IV ONE (05:15)
[2017-06-23] MEDS: LANSOPRAZOLE 30 MG TAB.RAP.DR PO SCH ×2 (05:22→16:41)
[2017-06-23] MEDS: BENZONATATE 100 MG CAPSULE PO SCH ×3 (05:22→21:40)
[2017-06-23 06:04] LABS: ABSOLUTE BASOPHILS # (AUTO) 0.1 10^3/uL (0.0-0.2); ABSOLUTE EOSINOPHILS # (AUTO) 0.1 10^3/uL (0.0-0.6); ABSOLUTE LYMPHOCYTES (AUTO) 0.8 10^3/uL (0.5-4.7); ABSOLUTE MONOCYTES (AUTO) 0.4 10^3/uL (0.1-1.4); ABSOLUTE NEUT (AUTO) 8.5 10^3/uL (1.7-8.2); BASOPHILS % (AUTO) 1.1 % (0-2); EOSINOPHILS % (AUTO) 0.8 % (0-6); HEMATOCRIT 32.9 % (37.9-51.0); HEMOGLOBIN 10.7 g/dL (13.5-17.0); LYMPHOCYTES % (AUTO) 8.5 % (13-45); MEAN CORPUSCULAR HEMOGLOBIN 23.5 pg (27.0-33.4); MEAN CORPUSCULAR HGB CONC 32.6 g/dL (32.0-36.0); MEAN CORPUSCULAR VOLUME 72 fl (80-97); MONOCYTES % (AUTO) 4.5 % (3-13); PLATELET COUNT 171 10^3/uL (150-450); RED BLOOD COUNT 4.57 10^6/uL (4.35-5.55); RED CELL DISTRIBUTION WIDTH 29.2 % (11.5-14.0); SEGMENTED NEUTROPHILS % (AUTO) 85.1 % (42-78); TOTAL CELLS COUNTED % (AUTO) 100 %; WHITE BLOOD COUNT 9.9 10^3/uL (4.0-10.5)
[2017-06-23] MEDS ORDERED: AMIODARONE HCL 200 MG TABLET PO ONE (06:30)
[2017-06-23 06:35] LABS: ANISOCYTOSIS 4+; HYPOCHROMASIA 1+; PLATELET COMMENT ADEQUATE
--- NOTE | 2017-06-23 10:22 | PDOC PROGRESS REPORT ---
Subjective Progress Note for:: 06/23/17 Subjective:: Developed atrial fibrillation last night. Currently in a normal sinus rhythm. Reason For Visit: PNEUMONIA Physical Exam Vital Signs: Temp Pulse Resp BP Pulse Ox 98.4 F 110 H 16 126/88 H 90 L 06/23/17 07:11 06/23/17 07:11 06/23/17 07:11 06/23/17 07:11 06/23/17 07:11 Intake & Output 06/22/17 06/23/17 06/24/17 06:59 06:59 06:59 Intake Total 995 1116 Output Total 3450 0125 Balance -0411 -6375 Weight 65.5 kg 64.5 kg General appearance: PRESENT: no acute distress Eye exam: PRESENT: conjunctiva pink. ABSENT: scleral icterus Mouth exam: PRESENT: moist, tongue midline Neck exam: ABSENT: JVD Respiratory exam: PRESENT: clear to auscultation joce. ABSENT: rales, rhonchi, wheezes Cardiovascular exam: PRESENT: RRR. ABSENT: diastolic murmur, rubs, systolic murmur GI/Abdominal exam: PRESENT: normal bowel sounds, soft. ABSENT: distended, guarding, mass, organolmegaly, rebound, tenderness Extremities exam: ABSENT: calf tenderness, clubbing, pedal edema Neurological exam: PRESENT: alert, awake, oriented to person, oriented to place , oriented to time, oriented to situation, CN II-XII grossly intact. ABSENT: motor sensory deficit Psychiatric exam: PRESENT: appropriate affect Skin exam: PRESENT: dry, intact, warm. ABSENT: cyanosis, rash Results Laboratory Results: 06/23/17 05:41 06/21/17 04:51 06/22/17 06/23/17 23:00 05:41 WBC 9.9 RBC 4.57 Hgb 10.7 L Hct 32.9 L MCV 72 L MCH 23.5 L MCHC 32.6 RDW 29.2 H Plt Count 171 Seg Neutrophils % 85.1 H Lymphocytes % 8.5 L Monocytes % 4.5 Eosinophils % 0.8 Basophils % 1.1 Absolute Neutrophils 8.5 H Absolute Lymphocytes 0.8 Absolute Monocytes 0.4 Absolute Eosinophils 0.1 Absolute Basophils 0.1 Urine Color RED Urine Appearance CLOUDY Urine pH 9.0 Ur Specific [place] 1.006 Urine Protein 30 H Urine Glucose (UA) NEGATIVE Urine Ketones NEGATIVE Urine Blood LARGE H Urine Nitrite NEGATIVE Ur Leukocyte Esterase NEGATIVE Urine WBC (Auto) 13 Urine RBC (Auto) >182 Impressions: Chest X-Ray 06/10/17 09:08 IMPRESSION: UNDERLYING EMPHYSEMA WITH PATCHY MULTIFOCAL AIRSPACE DISEASE AND MODERATE BILATERAL PLEURAL EFFUSIONS. PRESUMABLY THIS REPRESENTS ASYMMETRIC PULMONARY EDEMA SUPERIMPOSED ON COPD HOWEVER MULTIFOCAL PNEUMONIA IS ALSO IN THE DIFFERENTIAL. Assessment & Plan - Diagnosis (1) Respiratory failure Qualifiers: Chronicity: acute Respiratory failure complication: unspecified whether with hypoxia or hypercapnia Qualified Code(s): J96.00 - Acute respiratory failure, unspecified whether with hypoxia or hypercapnia Is this a current diagnosis for this admission?: Yes Plan: Secondary to pneumonia and acute COPD exacerbation. Resolving. (2) Pneumonia Qualifiers: Pneumonia type: due to unspecified organism Is this a current diagnosis for this admission?: Yes Plan: Has completed a course of Levaquin. (3) COPD exacerbation Is this a current diagnosis for this admission?: Yes Plan: Continue with prednisone and nebulizers. (4) Atrial fibrillation Is this a current diagnosis for this admission?: Yes Plan: Patient is rate control. Continue with the Xarelto for anticoagulation. (5) Coronary artery disease Is this a current diagnosis for this admission?: Yes Plan: Denies any chest pain. (6) Peripheral vascular disease Is this a current diagnosis for this admission?: Yes Plan: Patient has had multiple stent placements in his legs. (7) Squamous cell carcinoma of lung, stage IV Qualifiers: Laterality: unspecified laterality Qualified Code(s): C34.90 - Malignant neoplasm of unspecified part of unspecified bronchus or lung Is this a current diagnosis for this admission?: Yes Plan: Patient reports that his last chemotherapy was in April. (8) Do not resuscitate Is this a current diagnosis for this admission?: Yes Plan: Patient requests to be a DO NOT RESUSCITATE. (9) Constipation due to opioid therapy Is this a current diagnosis for this admission?: Yes (10) Iron deficiency anemia Qualifiers: Iron deficiency anemia type: inadequate dietary iron intake Qualified Code( s): D50.8 - Other iron deficiency anemias Is this a current diagnosis for this admission?: Yes - Time Time Spent with patient: 25-34 minutes
--- NOTE | 2017-06-23 10:26 | EKG REPORT ---
SEVERITY:- ABNORMAL ECG - A FIB NONSPECIFIC T WAVE CHANGES : Confirmed by: Ritesh Neville 23-Jun-2017 10:25:00
[2017-06-23] MEDS: FOLIC ACID 1 MG TABLET PO SCH (10:31)
[2017-06-23] MEDS: POLYETHYLENE GLYCOL 3350 POWDER 17 GM/1 PACKET PO SCH (10:31)
[2017-06-23] MEDS: PREDNISONE 20 MG TABLET PO SCH (10:31)
[2017-06-23] MEDS: DOCUSATE SODIUM 100 MG CAPSULE PO SCH ×2 (10:31→17:56)
[2017-06-23] MEDS: AMIODARONE HCL 200 MG TABLET PO SCH (10:31)
[2017-06-23] MEDS: METOPROLOL TARTRATE 25 MG TABLET PO SCH (10:32)
[2017-06-23] MEDS: BUPROPION HCL 75 MG TABLET PO SCH ×2 (10:32→21:40)
[2017-06-23] MEDS: IRON POLYSACCHARIDES COMPLEX 150 MG CAPSULE PO SCH (12:32)
[2017-06-23] MEDS: RIVAROXABAN 10 MG TABLET PO SCH (16:41)
[2017-06-24] MEDS: IPRATROPIUM/ALBUTEROL 0.5-2.5 MG/3 ML AMPUL NEB SCH ×4 (02:12→19:37)
[2017-06-24] MEDS: LANSOPRAZOLE 30 MG TAB.RAP.DR PO SCH ×2 (05:26→17:42)
[2017-06-24] MEDS: BENZONATATE 100 MG CAPSULE PO SCH ×3 (05:26→21:36)
[2017-06-24] MEDS: DOCUSATE SODIUM 100 MG CAPSULE PO SCH ×2 (10:16→17:41)
[2017-06-24] MEDS: POLYETHYLENE GLYCOL 3350 POWDER 17 GM/1 PACKET PO SCH (10:16)
[2017-06-24] MEDS: PREDNISONE 20 MG TABLET PO SCH (10:17)
[2017-06-24] MEDS: FOLIC ACID 1 MG TABLET PO SCH (10:17)
[2017-06-24] MEDS: METOPROLOL TARTRATE 25 MG TABLET PO SCH (10:17)
[2017-06-24] MEDS: BUPROPION HCL 75 MG TABLET PO SCH ×2 (10:18→21:37)
[2017-06-24] MEDS: AMIODARONE HCL 200 MG TABLET PO SCH (10:18)
--- NOTE | 2017-06-24 12:32 | PDOC PROGRESS REPORT ---
Subjective Progress Note for:: 06/24/17 Subjective:: patient is drowsy this morning but without complaints. Reason For Visit: PNEUMONIA Physical Exam Vital Signs: Temp Pulse Resp BP Pulse Ox 98.2 F 69 16 130/61 H 95 06/24/17 11:21 06/24/17 11:21 06/24/17 11:21 06/24/17 11:21 06/24/17 11:21 Intake & Output 06/23/17 06/24/17 06/25/17 06:59 06:59 06:59 Intake Total 1116 818 473 Output Total 2975 2475 500 Balance -1859 -1657 -27 Weight 64.5 kg 61.5 kg Respiratory exam: PRESENT: clear to auscultation joce. ABSENT: rales, rhonchi, wheezes Cardiovascular exam: PRESENT: RRR. ABSENT: diastolic murmur, rubs, systolic murmur GI/Abdominal exam: PRESENT: normal bowel sounds, soft. ABSENT: distended, guarding, mass, organolmegaly, rebound, tenderness Extremities exam: ABSENT: calf tenderness, clubbing, pedal edema Neurological exam: PRESENT: alert, awake, oriented to person, oriented to place , oriented to time, oriented to situation, CN II-XII grossly intact. ABSENT: motor sensory deficit Psychiatric exam: PRESENT: appropriate affect Skin exam: PRESENT: dry, intact, warm. ABSENT: cyanosis, rash Results Laboratory Results: 06/23/17 05:41 06/21/17 04:51 Impressions: Chest X-Ray 06/10/17 09:08 IMPRESSION: UNDERLYING EMPHYSEMA WITH PATCHY MULTIFOCAL AIRSPACE DISEASE AND MODERATE BILATERAL PLEURAL EFFUSIONS. PRESUMABLY THIS REPRESENTS ASYMMETRIC PULMONARY EDEMA SUPERIMPOSED ON COPD HOWEVER MULTIFOCAL PNEUMONIA IS ALSO IN THE DIFFERENTIAL. Assessment & Plan - Diagnosis (1) Respiratory failure Qualifiers: Chronicity: acute Respiratory failure complication: unspecified whether with hypoxia or hypercapnia Qualified Code(s): J96.00 - Acute respiratory failure, unspecified whether with hypoxia or hypercapnia Is this a current diagnosis for this admission?: Yes Plan: Secondary to pneumonia and acute COPD exacerbation. Resolving. (2) Pneumonia Qualifiers: Pneumonia type: due to unspecified organism Is this a current diagnosis for this admission?: Yes Plan: Has completed a course of Levaquin. (3) COPD exacerbation Is this a current diagnosis for this admission?: Yes Plan: Continue with prednisone and nebulizers. (4) Atrial fibrillation Is this a current diagnosis for this admission?: Yes Plan: Patient is rate control. Continue with the Xarelto for anticoagulation. (5) Coronary artery disease Is this a current diagnosis for this admission?: Yes Plan: Denies any chest pain. (6) Peripheral vascular disease Is this a current diagnosis for this admission?: Yes Plan: Patient has had multiple stent placements in his legs. (7) Squamous cell carcinoma of lung, stage IV Qualifiers: Laterality: unspecified laterality Qualified Code(s): C34.90 - Malignant neoplasm of unspecified part of unspecified bronchus or lung Is this a current diagnosis for this admission?: Yes Plan: Patient reports that his last chemotherapy was in April. (8) Do not resuscitate Is this a current diagnosis for this admission?: Yes Plan: Patient requests to be a DO NOT RESUSCITATE. (9) Constipation due to opioid therapy Is this a current diagnosis for this admission?: Yes (10) Iron deficiency anemia Qualifiers: Iron deficiency anemia type: inadequate dietary iron intake Qualified Code( s): D50.8 - Other iron deficiency anemias Is this a current diagnosis for this admission?: Yes - Time Time Spent with patient: 25-34 minutes - Inpatient Certification Medical Necessity: Need Close Monitoring Due to Risk of Patient Decompensation - Plan Summary Plan Summary: Awaiting on rehab placement
[2017-06-24] MEDS: IRON POLYSACCHARIDES COMPLEX 150 MG CAPSULE PO SCH (12:44)
[2017-06-24] MEDS: RIVAROXABAN 10 MG TABLET PO SCH (17:42)
[2017-06-25] MEDS: IPRATROPIUM/ALBUTEROL 0.5-2.5 MG/3 ML AMPUL NEB SCH ×4 (01:10→21:10)
[2017-06-25] MEDS: LANSOPRAZOLE 30 MG TAB.RAP.DR PO SCH ×2 (06:01→16:15)
[2017-06-25] MEDS: BENZONATATE 100 MG CAPSULE PO SCH ×2 (06:01→13:23)
[2017-06-25] MEDS: DOCUSATE SODIUM 100 MG CAPSULE PO SCH ×2 (10:25→17:04)
[2017-06-25] MEDS: POLYETHYLENE GLYCOL 3350 POWDER 17 GM/1 PACKET PO SCH (10:25)
[2017-06-25] MEDS: BUPROPION HCL 75 MG TABLET PO SCH (10:26)
[2017-06-25] MEDS: AMIODARONE HCL 200 MG TABLET PO SCH (10:26)
[2017-06-25] MEDS: PREDNISONE 20 MG TABLET PO SCH (10:27)
[2017-06-25] MEDS: FOLIC ACID 1 MG TABLET PO SCH (10:27)
[2017-06-25] MEDS: METOPROLOL TARTRATE 25 MG TABLET PO SCH (10:28)
[2017-06-25] MEDS: IRON POLYSACCHARIDES COMPLEX 150 MG CAPSULE PO SCH (11:58)
--- NOTE | 2017-06-25 13:10 | PDOC DISCHARGE SUMMARY ---
General - Admit/Disc Date/PCP Admission Date/Primary Care Provider: 06/10/17 12:40 Discharge Date: 06/25/17 - Discharge Diagnosis (1) Respiratory failure Is this a current diagnosis for this admission?: Yes Summary: Secondary to pneumonia. (2) Pneumonia Is this a current diagnosis for this admission?: Yes (3) COPD exacerbation Is this a current diagnosis for this admission?: Yes (4) Atrial fibrillation Is this a current diagnosis for this admission?: Yes (5) Coronary artery disease Is this a current diagnosis for this admission?: Yes (6) Peripheral vascular disease Is this a current diagnosis for this admission?: Yes (7) Squamous cell carcinoma of lung, stage IV Is this a current diagnosis for this admission?: Yes (8) Do not resuscitate Is this a current diagnosis for this admission?: Yes (9) Constipation due to opioid therapy Is this a current diagnosis for this admission?: Yes (10) Iron deficiency anemia Is this a current diagnosis for this admission?: Yes - Additional Information Discharge Diet: Cardiac Discharge Activity: Activity As Tolerated Prescriptions: Oxycodone HCl [Oxy-Ir 5 mg Tablet] 5 mg PO Q6HP PRN #20 tablet PRN Reason: Prednisone [Deltasone 20 mg Tablet] 20 mg PO DAILY #20 tablet Tiotropium Hailey [Spiriva Handihaler 5 Cap/Kit (18 Mcg/Cap)] 1 cap IH DAILY # 1 kit Home Medications: Albuterol Sulfate [Proair HFA] 2 puff IH Q4HP PRN 06/11/17 Amiodarone HCl [Cordarone 200 mg Tablet] 200 mg PO DAILY 06/11/17 Bupropion HCl [Bupropion Xl] 150 mg PO DAILY 06/11/17 Folic Acid [Folvite 1 mg Tablet] 1 mg PO DAILY 06/11/17 Metoprolol Tartrate [Lopressor 25 mg Tablet] 25 mg PO DAILY 06/11/17 Pantoprazole Sodium [Protonix] 40 mg PO BID 06/11/17 Rivaroxaban [Xarelto] 20 mg PO WSUPPER 06/11/17 Oxycodone HCl [Oxy-Ir 5 mg Tablet] 5 mg PO Q6HP PRN #20 tablet 06/25/17 Prednisone [Deltasone 20 mg Tablet] 20 mg PO DAILY #20 tablet 06/25/17 Tiotropium Hailey [Spiriva Handihaler 5 Cap/Kit (18 Mcg/Cap)] 1 cap IH DAILY # 1 kit 06/25/17 History of Present Illness History of Present Illness: SYLWIA WATSON is a 66 year old male history of lung cancer who last received chemotherapy in March [place]. The patient awoke on the morning of discharge with a thick yellow sputum cough as well as expiratory wheezes. Patient also was hypoxic with respiratory failure and oxygen saturations of 75% . The patient is admitted for pneumonia and COPD exacerbation. Hospital Course Hospital Course: 66-year-old male with history of lung cancer and COPD who presented with an acute COPD and pneumonia. Patient was treated with broad-spectrum antibiotics and had improvement in his respiratory status. Patient also treated with IV steroids and had resolution of his wheezing. The patient was weak and thought that he would benefit from rehab. With difficulty finding a place for him to go to rehab and he physical therapy. Eventually improved well enough that he felt he could go home with home health for patient also has a history of atrial fibrillation which has been stable. The patient has completed a course of antibiotics and will be discharged home with home health. Physical Exam Vital Signs: Temp Pulse Resp BP Pulse Ox 97.8 F 73 16 137/60 H 95 06/25/17 07:54 06/25/17 07:59 06/25/17 07:59 06/25/17 07:54 06/25/17 07:59 Intake & Output 06/24/17 06/25/17 06/26/17 06:59 06:59 06:59 Intake Total 818 1350 Output Total 2475 2500 Balance -1657 -1150 Weight 61.5 kg 61.3 kg General appearance: PRESENT: no acute distress Eye exam: PRESENT: conjunctiva pink. ABSENT: scleral icterus Mouth exam: PRESENT: moist, tongue midline Neck exam: ABSENT: JVD Respiratory exam: PRESENT: clear to auscultation joce. ABSENT: rales, rhonchi, wheezes Cardiovascular exam: PRESENT: RRR. ABSENT: diastolic murmur, rubs, systolic murmur GI/Abdominal exam: PRESENT: normal bowel sounds, soft. ABSENT: distended, guarding, mass, organolmegaly, rebound, tenderness Extremities exam: ABSENT: calf tenderness, clubbing, pedal edema Neurological exam: PRESENT: alert, awake, oriented to person, oriented to place , oriented to time, oriented to situation, CN II-XII grossly intact. ABSENT: motor sensory deficit Psychiatric exam: PRESENT: appropriate affect Skin exam: PRESENT: dry, intact, warm. ABSENT: cyanosis, rash Results Laboratory Results: 06/23/17 05:41 06/21/17 04:51 Impressions: Chest X-Ray 06/10/17 09:08 IMPRESSION: UNDERLYING EMPHYSEMA WITH PATCHY MULTIFOCAL AIRSPACE DISEASE AND MODERATE BILATERAL PLEURAL EFFUSIONS. PRESUMABLY THIS REPRESENTS ASYMMETRIC PULMONARY EDEMA SUPERIMPOSED ON COPD HOWEVER MULTIFOCAL PNEUMONIA IS ALSO IN THE DIFFERENTIAL. Qualifiers PATEINT BEING DISCHARGED WITH ANY OF THE FOLLOWING DIAGNOSIS?: No Plan Discharge Plan: Patient is discharged home with home health. Follow-up with primary care in 2 weeks. Time Spent: Greater than 30 Minutes
[2017-06-25] MEDS: RIVAROXABAN 10 MG TABLET PO SCH (16:14)
[2017-06-25 18:14] VITALS: BP 132/64
== END 2017-06-25 21:11 | disposition home or self-care (01) | DRG 193 ==
LOC: ER 09:01 → EH 12:40 → 3S 20:30
PROVIDERS: ADMIT Internal Medicine; ATTEND Internal Medicine
PROC: 5A09457 Assistance with Respiratory Ventilation, 24-96 Consecutive Hours, Continuous Positive Airway Pressure (ICD-10-PCS; principal; 2017-06-10)
PROC: 30233N1 Transfusion of Nonautologous Red Blood Cells into Peripheral Vein, Percutaneous Approach (ICD-10-PCS; 2017-06-20)
DX: J18.9 Pneumonia, unspecified organism (principal); J96.01 Acute respiratory failure with hypoxia; J44.0 Chronic obstructive pulmonary disease with (acute) lower respiratory infection; J44.1 Chronic obstructive pulmonary disease with (acute) exacerbation; C34.90 Malignant neoplasm of unspecified part of unspecified bronchus or lung; D50.8 Other iron deficiency anemias; I48.91 Unspecified atrial fibrillation; I73.9 Peripheral vascular disease, unspecified; Z66 Do not resuscitate; F17.200 Nicotine dependence, unspecified, uncomplicated; K59.03 Drug induced constipation; T40.2X5A Adverse effect of other opioids, initial encounter; Y92.239 Unspecified place in hospital as the place of occurrence of the external cause; Z79.899 Other long term (current) drug therapy; I25.10 Atherosclerotic heart disease of native coronary artery without angina pectoris; Z95.5 Presence of coronary angioplasty implant and graft; Z79.02 Long term (current) use of antithrombotics/antiplatelets; Z82.49 Family history of ischemic heart disease and other diseases of the circulatory system
CPT/HCPCS: 36415; 36430; 71045; 80048; 80053; 81001; 82272; 82607; 82728; 82746; 82803; 82962; 83540; 83550; 83605; 84466; 85025; 85027; 85045; 85610; 86850; 86900; 86901; 86920; 87040; 87070; 87077; 87086; 87205; 93005; 93010; 94640; 94660; 96361; 96365; 99291; 99406; G8978-GP; G8979-GP; G8980-GP; G8987-GO; G8988-GO; G8989-GO; J1756; J1885; J1940; J1956; J2543; J2920; J3490; J7030; J7050; J7512; J7620; P9016